=== PATIENT | female | born 1945 | race Caucasian/White ===

== ENCOUNTER 2018-04-03 14:59 | Emergency (ER) | payer MEDICARE ==
[2018-04-03 16:41] LABS: Hematocrit 22.2 % (36.0-45.0); MPV 8.1 fL (7.6-11.3); RBC Red Blood Cell Count 3.56 M/uL (3.86-4.86)
[2018-04-03 16:54] LABS: Ferritin 2.1 ng/mL (8-388); Folic Acid, (Folate) 7.8 ng/mL (3.1-17.5); Potassium 4.6 mmol/L (3.5-5.1)
--- NOTE | 2018-04-03 17:54 | ER ---
Nurse's Notes [facility] Name: Lynn Menezes Age: 73 yrs Sex: Female : 1945 Arrival Date: 04/03/2018 Time: 15:02 Bed 4 Private MD: Alan Whitley H Diagnosis: Iron deficiency anemia Presentation: 04/03 15:32 Presenting complaint: Patient states: Sent by Dr Whitley's office for Hgb 6.4 from blood ph work drawn on 03/27, pt denies abdominal pain, bloody stool or emesis, reports low back pain, fatigue and SOB upon exertion. Transition of care: patient was not received from another setting of care. Onset of symptoms was April 03, 2018. Risk Assessment: Do you want to hurt yourself or someone else? Patient reports no desire to harm self or others. Initial Sepsis Screen: Does the patient meet any 2 criteria? No. Patient's initial sepsis screen is negative. Does the patient have a suspected source of infection? No. Patient's initial sepsis screen is negative. Care prior to arrival: None. 15:32 Method Of Arrival: Ambulatory ph 15:32 Acuity: EUNICE 3 ph Historical: - Allergies: 15:36 Codeine; ph 15:36 PENICILLINS; ph 15:36 Sulfa (Sulfonamide Antibiotics); ph 15:36 TETRACYCLINES; ph - Home Meds: 15:36 Plavix Oral [Active]; Metformin Oral [Active]; levothyroxine oral [Active]; aspirin 81 ph mg Oral chew 1 tab once daily [Active]; HTN med [Active]; - Immunization history:: Adult Immunizations unknown. - Social history:: Smoking status: Patient uses tobacco products, smokes one pack cigarettes per day. - Ebola Screening: : No symptoms or risks identified at this time. - Family history:: not pertinent. - Hospitalizations: : No recent hospitalization is reported. Screenin:28 Abuse screen: Denies threats or abuse. Denies injuries from another. Nutritional sv screening: No deficits noted. Tuberculosis screening: No symptoms or risk factors identified. Fall Risk None identified. Assessment: 15:40 General: Appears in no apparent distress. comfortable, well developed, Behavior is sv calm, cooperative, appropriate for age. Pain: Complains of pain in low back area. Neuro: Level of Consciousness is awake, alert, obeys commands, Oriented to person, place, time, situation, Moves all extremities. Full function Gait is steady, Speech is normal. Respiratory: Reports shortness of breath on exertion Airway is patent Respiratory effort is even, unlabored, Respiratory pattern is regular, symmetrical. Derm: Skin is pale. Musculoskeletal: Range of motion: intact in all extremities. 16:41 Reassessment: Patient appears in no apparent distress at this time. No changes from previously documented assessment. Patient and/or family updated on plan of care and expected duration. Pain level reassessed. Patient is alert, oriented x 3, equal unlabored respirations, skin warm/dry/pink. 16:43 Reassessment: Dr. De La Torre notified of critical lab value: Hgb 6.4. Vital Signs: 15:37 BP 162 / 44; Pulse 74; Resp 18; Temp 98.2; Pulse Ox 97% on R/A; Weight 78.93 kg; Height ph 5 ft. 2 in. (157.48 cm); 16:38 BP 111 / 72; Pulse 71; Resp 18; Pulse Ox 99% ; sv 17:17 BP 136 / 56; Pulse 69; Resp 18; Pulse Ox 100% ; sv 18:20 BP 135 / 89; Pulse 67; Resp 18; Pulse Ox 99% ; sv 15:37 Body Mass Index 31.82 (78.93 kg, 157.48 cm) ph ED Course: 15:02 Patient arrived in ED. mr 15:03 Alan Whitley, is Private Physician. mr 15:25 Lucy Peralta, LARRY is Primary Nurse. sv 15:28 Patient has correct armband on for positive identification. Bed in low position. Call sv light in reach. Door closed. Head of bed elevated. 15:34 Triage completed. ph 15:34 Ambrosio De La Torre MD is Attending Physician. rn 15:40 Arm band placed on. sv 15:45 Initial lab(s) drawn, by ED staff, sent to lab. T\T\S collected, blood band applied to sv patient. Inserted saline lock: 20 gauge in right antecubital area, using aseptic technique. ,using aseptic technique. done by Starla JUAREZ Blood collected. 16:25 EKG done, by space technologist. reviewed by Ambrosio De La Torre MD. sm3 16:48 Manual Differential Sent. sv 17:53 Alan Whitley DO is Referral Physician. rn 18:37 No provider procedures requiring assistance completed. IV discontinued, intact, ss bleeding controlled, No redness/swelling at site. Pressure dressing applied. Administered Medications: No medications were administered Outcome: 17:54 Discharge ordered by MD. rn 18:37 Discharged to home ambulatory. ss 18:37 Condition: good 18:37 Discharge instructions given to patient, family, Instructed on discharge instructions, follow up and referral plans. medication usage, Demonstrated understanding of instructions, follow-up care, medications, Prescriptions given X 1. 18:38 Patient left the ED. Signatures: Lucy Peralta RN RN Fide Neri, MD MD larry Valente Shelby, RN RN Lynn Richard RN RN Abebe, Ayesha 3 Corrections: (The following items were deleted from the chart) 16:39 15:45 Initial lab(s) drawn, by ED staff, sent to lab. [facility]
--- NOTE | 2018-04-03 17:55 | EDPHYS ---
Physician Documentation [facility] Name: Lynn Menezes Age: 73 yrs Sex: Female : 1945 Arrival Date: 04/03/2018 Time: 15:02 Bed 4 Private MD: Alan Whitley H ED Physician Ambrosio De La Torre HPI: 04/03 17:45 This 73 yrs old Female presents to ER via Ambulatory with complaints of rn Abnormal Lab Results. 17:[address] Whitley called her for abnormal hemoglobin that was drawn 2 weeks ago. rn Reports chronic anemia, iron deficient, stopped taking her iron supplements. Reports gets a little winded upon high exertion but no chest pain/sob at rest/syncope, focal weakness. No blood in stool, denies bleeding from known source. . Severity of symptoms: At their worst the symptoms were mild in the emergency department the symptoms are unchanged. The patient has experienced similar episodes in the past. The patient has been recently seen by a physician:. Historical: - Allergies: 15:36 Codeine; ph 15:36 PENICILLINS; ph 15:36 Sulfa (Sulfonamide Antibiotics); ph 15:36 TETRACYCLINES; ph - Home Meds: 15:36 Plavix Oral [Active]; Metformin Oral [Active]; levothyroxine oral [Active]; aspirin 81 ph mg Oral chew 1 tab once daily [Active]; HTN med [Active]; - Immunization history:: Adult Immunizations unknown. - Social history:: Smoking status: Patient uses tobacco products, smokes one pack cigarettes per day. - Ebola Screening: : No symptoms or risks identified at this time. - Family history:: not pertinent. - Hospitalizations: : No recent hospitalization is reported. ROS: 17:45 Constitutional: Negative for fever, chills, and weight loss, + fatigue Eyes: Negative rn for injury, pain, redness, and discharge, Neck: Negative for injury, pain, and swelling, Cardiovascular: Negative for chest pain, palpitations, and edema, Respiratory: Negative for cough, wheezing, and pleuritic chest pain, Abdomen/GI: Negative for abdominal pain, nausea, vomiting, diarrhea, and constipation, Back: Negative for injury and pain, MS/Extremity: Negative for injury and deformity, Skin: Negative for injury, rash, and discoloration, Neuro: Negative for headache, numbness, tingling, and seizure. Exam: 17:45 Constitutional: This is a well developed, well nourished patient who is awake, alert, rn and in no acute distress. Head/Face: Normocephalic, atraumatic. Eyes: Pupils equal round and reactive to light, extra-ocular motions intact. Lids and lashes normal. Slightly pale conjunctivae ENT: Mucous membranes moist. Respiratory: No increased work of breathing, no retractions or nasal flaring. Skin: Warm, dry with normal turgor. Normal color with no rashes, no lesions, and no evidence of cellulitis. MS/ Extremity: Pulses equal, no cyanosis. Neurovascular intact. Full, normal range of motion. Equal circumference. Neuro: Awake and alert, GCS 15, oriented to person, place, time, and situation. Cranial nerves II-XII grossly intact. Motor strength 5/5 in all extremities. Sensory grossly intact. Cerebellar exam normal. Normal gait. Vital Signs: 15:37 BP 162 / 44; Pulse 74; Resp 18; Temp 98.2; Pulse Ox 97% on R/A; Weight 78.93 kg; Height ph 5 ft. 2 in. (157.48 cm); 16:38 BP 111 / 72; Pulse 71; Resp 18; Pulse Ox 99% ; sv 17:17 BP 136 / 56; Pulse 69; Resp 18; Pulse Ox 100% ; sv 18:20 BP 135 / 89; Pulse 67; Resp 18; Pulse Ox 99% ; sv 15:37 Body Mass Index 31.82 (78.93 kg, 157.48 cm) ph MDM: 15:34 Patient medically screened. rn 17:50 Differential Diagnosis anemia, iron deficiency. Data reviewed: vital signs, nurses rn notes, lab test result(s), and as a result, I will discharge patient. Counseling: I had a detailed discussion with the patient and/or guardian regarding: the historical points, exam findings, and any diagnostic results supporting the discharge/admit diagnosis, lab results, the need for outpatient follow up, to return to the emergency department if symptoms worsen or persist or if there are any questions or concerns that arise at home. Special discussion: I discussed with the patient/guardian in detail that at this point there is no indication for admission to the hospital. It is understood, however, that if the symptoms persist or worsen the patient needs to return immediately for re-evaluation. Based on the history and exam findings, there is no indication for further emergent testing or inpatient evaluation. I discussed with the patient/guardian the need to see the door paneler/oncologist for further evaluation of the symptoms. I discussed with the patient/guardian the need to see the primary care provider for further evaluation of the symptoms. ED course: Had long discussion with patient, seems more consistent with iron deficiency anemia as no active bleeding from known source, low iron and saturation, has been gradual onset. Given grossly asymptomatic, offered transfusion of 1 unit of blood vs oral iron and pcp f/u, patient perez snot want transfusion at this time, wants to get back on her oral iron supplements and f/u with Dr. Whitley for repeat hemoglobin in 2 weeks. Return precautions given and understood. . 04/03 15:43 Order name: CBC with Diff rn 04/03 15:43 Order name: Basic Metabolic Panel; Complete Time: 17: 04/03 15:43 Order name: Type And Screen; Complete Time: 17: rn 04/03 15:43 Order name: Retic Count rn 04/03 15:43 Order name: TRANSFERRIN SAT/IRON BINDING; Complete Time: 17:31 04/03 15:43 Order name: Iron Level; Complete Time: 17:31 rn 04/03 15:43 Order name: IV Start; Complete Time: 16:35 rn 04/03 15:43 Order name: EKG; Complete Time: 15:44 rn 04/03 15:43 Order name: EKG - Nurse/Tech; Complete Time: 16:35 04/03 15:43 Order name: Folic Acid,Serum (folate); Complete Time: 17:31 rn 04/03 15:43 Order name: B12; Complete Time: 17: 04/03 16:46 Order name: Manual Differential EDMS Administered Medications: No medications were administered Disposition: 04/03/18 17:54 Discharged to Home. Impression: Iron deficiency anemia. - Condition is Stable. - Discharge Instructions: Iron Deficiency Anemia, Adult. - Prescriptions for Ferrous Sulfate 325 mg (65 mg Iron) Oral Tablet - take 1 tablet by ORAL route every 8 hours; 90 tablet. - Medication Reconciliation Form, Thank You Letter, Antibiotic Education, Prescription Opioid Use form. - Follow up: Alan Whitley DO; When: 2 Weeks; Reason: Recheck today's complaints, Continuance of care, Re-evaluation by your physician. - Problem is an ongoing problem. - Symptoms are unchanged. Signatures: Dispatcher [employer] [facility] Ambrosio De La Torre MD MD rn Smirch, Shelby, RN RN ss Hall, Patricia, RN RN ph Corrections: (The following items were deleted from the chart) 15:45 15:44 FERRITIN+C.LAB.BRZ ordered. [facility] 18:38 17:54 04/03/2018 17:54 Discharged to Home. Impression: Iron deficiency anemia. ss Condition is Stable. Forms are Medication Reconciliation Form, Thank You Letter, Antibiotic Education, Prescription Opioid Use. Follow up: Alan Whitley; When: 2 Weeks; Reason: Recheck today's complaints, Continuance of care, Re-evaluation by your physician. Problem is an ongoing problem. Symptoms are unchanged. rn
[2018-04-03 17:58] LABS: Anisocytosis 1+; Blood Morphology Comment NOTED (NOT SEEN); Hypochromasia 1+; Platelet Estimate ADEQ
[2018-04-03 17:59] LABS: Poikilocytosis SLIGHT; Polychromasia SLIGHT
[2018-04-03 18:49] VITALS: TEMP 98.2
[2018-04-03 18:51] VITALS: BP 136/56; O2SAT 100
--- NOTE | 2018-04-04 06:58 | EKG ---
Test Date: 2018-04-03 Test Time: 16:03:23 Paragliding Instructor: ARNULFO MEASUREMENT RESULTS: Intervals: Rate: 64 KS: 206 QRSD: 100 QT: 404 QTc: 416 [place]: P: 42 KS: 206 QRS: 25 T: 73 INTERPRETIVE STATEMENTS: Normal sinus rhythm Nonspecific ST abnormality Abnormal ECG Compared to ECG 01/09/2017 12:41:12 ST (T wave) deviation now present First degree AV block no longer present Myocardial infarct finding no longer present Electronically Signed On 04-04-18 06:56:13 [employer]ANSFORMER [employer]SEM[employer]PERVISOR by Eldon Jones
== END 2018-04-03 18:38 | disposition home or self-care (01) ==
LOC: ER 14:59
DX: D50.9 Iron deficiency anemia, unspecified (principal); I10 Essential (primary) hypertension; F17.210 Nicotine dependence, cigarettes, uncomplicated; Z79.01 Long term (current) use of anticoagulants; Z79.82 Long term (current) use of aspirin; Z88.0 Allergy status to penicillin; Z88.2 Allergy status to sulfonamides; Z88.3 Allergy status to other anti-infective agents; Z88.5 Allergy status to narcotic agent
CPT/HCPCS: 36415; 80048; 82607; 82728; 82746; 83540; 84466; 85025; 85044; 86850; 86900; 86901; 93005; 99284

== ENCOUNTER 2022-04-01 12:23 | Inpatient (IN) | payer MEDICARE, OTHER ==
[2022-04-01 13:08] LABS: Absolute Lymphocytes (CBC) 0.4 K/uL (0.7-4.9); Hematocrit 26.3 % (36.0-45.0); Lymphocytes % 2.9 % (15.3-44.8); MCV 70.2 fL (80-100); MPV 8.1 fL (7.6-11.3); RBC Red Blood Cell Count 3.75 M/uL (3.86-4.86)
[2022-04-01 13:12] LABS: Protime INR 1.11
[2022-04-01 13:19] LABS: Urine Blood 2+ (Negative); Urine Glucose Trace (Negative); Urine Protein 3+ (Negative); Urine Specific Gravity >=1.030 (1.005-1.030); Urine pH 5.5 (5.0-7.0)
[2022-04-01 13:27] LABS: Blood Gas Oxyhemoglobin 91.8 % (94-97); Blood O2 Saturation 94.8 % (92-98.5)
[2022-04-01 13:28] LABS: Bilirubin Total 0.5 mg/dL (0.2-1.0); Potassium 4.3 mmol/L (3.5-5.1); Protein, Total 8.4 g/dL (6.4-8.2)
[2022-04-01] MEDS ORDERED: METHYLPREDNISOLONE 125 MG INJ ONE (13:33)
[2022-04-01] MEDS ORDERED: Meropenem 1000 MG/VIAL IV ONE (13:33)
[2022-04-01] MEDS ORDERED: LEVALBUTEROL 1.25 MG/3 ML NEB ONE (13:33)
[2022-04-01] MEDS ORDERED: NA CHLORIDE 0.9% 1,000 ML ONE (13:34)
[2022-04-01] MEDS ORDERED: PANTOPRAZOLE 40 MG INJ ONE (13:34)
[2022-04-01] MEDS ORDERED: NA CHLORIDE 0.9% 500 ML ONE (13:34)
[2022-04-01] MEDS ORDERED: IPRATROPIUM BROM 0.5MG/2.5ML ONE (13:34)
[2022-04-01] MEDS ORDERED: NA CHLORIDE 0.9% 100 ML ONE (13:34)
[2022-04-01 13:35] LABS: Urine Bacteria >50 /HPF (<20); Urine Mucus Slight /HPF (None Seen); Urine RBC <5 /HPF (None Seen); Urine WBC Clump Occasional /HPF (None Seen)
--- NOTE | 2022-04-01 13:48 | RAD REPORT ---
EXAM DESCRIPTION: [place] Single View04/01/2022 1:38 pm CLINICAL HISTORY: Shortness breath COMPARISON: 2017 FINDINGS: [id number] bilateral pulmonary opacities Heart is mildly enlarged IMPRESSION: Mild to moderate bilateral pulmonary opacities may represent pneumonia or pulmonary ailyn a
[2022-04-01 13:49] LABS: Blood Morphology Comment NOTED (NOT SEEN); Hypochromasia 1+; Platelet Estimate ADEQ; White Blood Cell Scan OK (OK)
[2022-04-01 14:08] LABS: SARS-COV-2 RT PCR POSITIVE (NEGATIVE)
--- NOTE | 2022-04-01 14:26 | EDPHYS ---
Physician Documentation [facility] Name: Lynn Menezes Age: 77 yrs Sex: Female : 1945 Arrival Date: 04/01/2022 Time: 12:25 Bed 4 Private MD: DAPHNIE Physician Gelacio Felix HPI: 04/01 13:00 This 77 yrs old Female presents to ER via Wheelchair with complaints of camden Breathing Difficulty, General Weakness. 13:00 The patient has shortness of breath at rest, with light activity. Onset: The camden symptoms/episode began/occurred 3 day(s) ago. Historical: - Allergies: 12:45 Codeine; iw 12:45 PENICILLINS; iw 12:45 Sulfa (Sulfonamide Antibiotics); iw 12:45 TETRACYCLINES; iw - Home Meds: 13:01 aspirin 81 mg Oral chew 1 tab once daily [Active]; ibuprofen 600 mg Oral tab 1 tab 3 iw times per day [Active]; oxybutynin chloride 5 mg Oral tab 1 tab 2 times per day [Active]; ferrous sulfate 325 mg (65 mg iron) Oral cpER daily [Active]; losartan 100 mg oral tab 1 tab once daily [Active]; Vitamin D Oral 2000 unit daily [Active]; metformin 500 mg oral tab 2 times per day [Active]; fenofibrate 160 mg oral tab 1 tab once daily [Active]; Advair Diskus 100-50 mcg/dose Inhl dsdv 1 puff 2 times per day [Active]; - PMHx: 13:01 COPD; Emphysema; Hypothyroidism; Anemia; Hypertensive disorder; iw - Social history:: Smoking status: Patient reports the use of cigarette tobacco products. - Family history:: not pertinent. ROS: 13:01 Constitutional: Negative for fever, chills, and weight loss, Eyes: Negative for injury, camden pain, redness, and discharge, ENT: Negative for injury, pain, and discharge, Neck: Negative for injury, pain, and swelling, Abdomen/GI: Negative for abdominal pain, nausea, vomiting, diarrhea, and constipation, Back: Negative for injury and pain, : Negative for injury, bleeding, discharge, and swelling, MS/Extremity: Negative for injury and deformity, Psych: Negative for depression, anxiety, suicide ideation, homicidal ideation, and hallucinations, Allergy/Immunology: Negative for hives, rash, and allergies, Endocrine: Negative for neck swelling, polydipsia, polyuria, polyphagia, and marked weight changes. 13:01 Cardiovascular: Positive for orthopnea, palpitations. 13:01 Respiratory: Positive for cough, shortness of breath, at rest. wheezing, inspiratory, expiratory. 13:01 Skin: Positive for pallor. Exam: 13:01 Constitutional: This is a well developed, well nourished patient who is awake, alert, camden and in no acute distress. Head/Face: Normocephalic, atraumatic. Eyes: Pupils equal round and reactive to light, extra-ocular motions intact. Lids and lashes normal. Conjunctiva and sclera are non-icteric and not injected. Cornea within normal limits. Periorbital areas with no swelling, redness, or edema. ENT: Nares patent. No nasal discharge, no septal abnormalities noted. Tympanic membranes are normal and external auditory canals are clear. Oropharynx with no redness, swelling, or masses, exudates, or evidence of obstruction, uvula midline. Mucous membranes moist. Neck: Trachea midline, no thyromegaly or masses palpated, and no cervical lymphadenopathy. Supple, full range of motion without nuchal rigidity, or vertebral point tenderness. No Meningismus. Chest/axilla: Normal chest wall appearance and motion. Nontender with no deformity. No lesions are appreciated. Abdomen/GI: Soft, non-tender, with normal bowel sounds. No distension or tympany. No guarding or rebound. No evidence of tenderness throughout. Back: No spinal tenderness. No costovertebral tenderness. Full range of motion. Female : Normal external genitalia. MS/ Extremity: Pulses equal, no cyanosis. Neurovascular intact. Full, normal range of motion. Psych: Awake, alert, with orientation to person, place and time. Behavior, mood, and affect are within normal limits. 13:01 Cardiovascular: Rate: tachycardic, actual rate is 120 bpm, Rhythm: regular, Pulses: Pulses are 4+ in bilateral radial, brachial, femoral, popliteal, posterior tibial and and dorsalis pedis arteries.. Heart sounds: normal, Edema: is not appreciated, JVD: is not appreciated. 13:01 ECG was reviewed by the Attending Physician. 14:19 Abdomen/GI: Inspection: distension, that is mild, Bowel sounds: normal, active, all camden quadrants, Palpation: soft, nontender, Rectal exam: rectal tone normal, Stool: brown, hemorrhoid(s), are not appreciated, mass, is not appreciated, swelling, is not appreciated, tenderness, is not appreciated, fecal impaction, is not appreciated, Liver: no appreciated palpable abnormalities, Hernia: not appreciated. Vital Signs: 12:30 BP 142 / 57; Pulse 120; Resp 32; Temp 98.4; Pulse Ox 72% on R/A; Weight 83.91 kg; hb Height 5 ft. 2 in. (157.48 cm); Pain 0/10; 13:04 BP 152 / 57; Pulse 112; Resp 30; Temp 98.4(O); Pulse Ox 97% on 4 lpm NC; iw 14:00 BP 115 / 57; Pulse 103; Resp 27; Pulse Ox 100% on BiPAP; kr3 15:00 BP 137 / 51; Pulse 106; Resp 26; Pulse Ox 98% on BiPAP; kr3 16:00 BP 122 / 53; Pulse 97; Resp 26; Pulse Ox 100% on BiPAP; kr3 17:00 BP 126 / 40; Pulse 96; Resp 24; Pulse Ox 100% on BiPAP; kr3 12:30 Body Mass Index 33.84 (83.91 kg, 157.48 cm) hb NIH Stroke Scale Scores: 14:19 NIHSS Score: 0 camden Marky Coma Score: 14:19 Eye Response: spontaneous(4). Verbal Response: oriented(5). Motor Response: obeys camden commands(6). Total: 15. MDM: 12:41 Patient medically screened. camden 13:05 Differential diagnosis: Anemia asthma, Bronchitis CHF exacerbation, Chronic Obstructive camden Pulmonary Disease acute asthma, exercise-induced asthma, reactive airway, URI, Myocardial Infarction pneumonia, Pneumothorax pulmonary edema, Pulmonary Embolism reactive airway disease, Sepsis Unstable Angina. Antibiotic administration: Maxipime and Levaquin given. Differential Diagnosis altered mental status, sepsis, flu. Immunization status: Pneumococcal vaccine: within last 5 years. Influenza vaccine: within last 5 years. Data reviewed: vital signs, nurses notes, lab test result(s), EKG, radiologic studies. Consideration of Admission/Observation Patient was admitted/placed on observation. I considered the following discharge prescriptions or medication management in the emergency department Medications were administered in the Emergency Department. See MAR. Test considered but Not performed: MRI: MRI CHEST. Historians other than the Patient: Daughter/Son: SON , WELL INFORMED. Care significantly affected by the following chronic conditions: Hypertension, Chronic Obstructive Pulmonary Disease, ANEMIA, HYPOTHYROID. 04/01 12:45 Order name: Blood Culture Adult (2) 04/01 12:45 Order name: CBC with Diff; Complete Time: 13:53 04/01 12:45 Order name: CMP; Complete Time: 13:53 04/01 12:45 Order name: Lactate w/ 2H reflex if indic.; Complete Time: 13:53 04/01 12:45 Order name: Protime (+inr); Complete Time: 13:53 04/01 12:45 Order name: Ptt, Activated; Complete Time: 13:53 04/01 12:45 Order name: Urine Microscopic Only; Complete Time: 13:53 04/01 12:47 Order name: COVID-19/FLU A+B; Complete Time: 14:18 kr3 04/01 12:59 Order name: Basic Metabolic Panel [facility] 04/01 12:59 Order name: LFT's [facility] 04/01 12:59 Order name: Magnesium [facility] 04/01 12:59 Order name: NT PRO-BNP [facility] 04/01 12:59 Order name: Troponin HS [facility] 04/01 12:59 Order name: Type And Screen [facility] 04/01 12:59 Order name: ABG; Complete Time: 13:53 [facility] 04/01 13:19 Order name: Urine Dipstick-Ancillary; Complete Time: 13:53 [facility] 04/01 13:20 Order name: CBC Smear Scan; Complete Time: 13:53 [facility] 04/01 13:36 Order name: Bb Add On eb 04/01 14:26 Order name: Packed RBC Leukored [facility] 04/01 16:01 Order name: T4 Free [facility] 04/01 16:01 Order name: Thyroid Stimulating Hormone [facility] 04/01 16:01 Order name: Urinalysis [facility] 04/01 16:01 Order name: Basic Metabolic Panel [facility] 04/01 16:01 Order name: Basic Metabolic Panel [facility] 04/01 16:01 Order name: Basic Metabolic Panel [facility] 04/01 16:01 Order name: Basic Metabolic Panel [facility] 04/01 16:01 Order name: CBC with Automated Diff [facility] 04/01 16:01 Order name: CBC with Automated Diff EDMS 04/01 16:01 Order name: CBC with Automated Diff EDMS 04/01 12:45 Order name: Chest Single View XRAY; Complete Time: 13:53 iw 04/01 12:45 Order name: EKG; Complete Time: 12:46 iw 04/01 12:45 Order name: Accucheck; Complete Time: 18:30 iw 04/01 12:45 Order name: Cardiac monitoring; Complete Time: 12:50 iw 04/01 12:45 Order name: EKG - Nurse/Tech; Complete Time: 12:50 iw 04/01 12:45 Order name: IV Saline Lock - Large Bore; Complete Time: 12:50 iw 04/01 12:45 Order name: Labs collected and sent; Complete Time: 12:50 iw 04/01 12:45 Order name: O2 Per Protocol; Complete Time: 12:50 iw 04/01 12:45 Order name: O2 Sat Monitoring; Complete Time: 12:50 iw 04/01 12:45 Order name: Vital Signs; Complete Time: 14:51 iw 04/01 12:59 Order name: IV Saline Lock; Complete Time: 13:20 cam[place] 04/01 12:59 Order name: IV Saline Lock - Large Bore; Complete Time: 13:20 [place] 04/01 12:59 Order name: BIPAP [facility] 04/01 12:59 Order name: Boo; Complete Time: 13:21 cam[place] 04/01 13:55 Order name: Transfuse; Complete Time: 18:30 [facility] 04/01 16:01 Order name: 60g Consistent Carbohydrate (ADA 1800/2000) EDMS 04/01 16:01 Order name: CBC with Automated Diff EDMS 04/01 16:01 Order name: Magnesium EDMS 04/01 16:01 Order name: Magnesium EDMS 04/01 16:01 Order name: Phosphorus EDMS 04/01 16:01 Order name: Phosphorus EDMS 04/01 16:46 Order name: Lactate Sepsis 2 HR Follow-up EDMS 04/01 18:10 Order name: CBC with Automated Diff EDMS 04/01 18:11 Order name: CBC Smear Scan EDMS EC:01 Rate is 112 beats/min. Rhythm is regular. QRS [place] is Normal. IN interval is normal. camden QRS interval is normal. QT interval is normal. No Q waves. T waves are Normal. No ST changes noted. Clinical impression: Sinus tachycardia. Interpreted by me. Reviewed by me. Administered Medications: 13:30 Drug: AtroVENT (ipratropium) Aerosol 0.5 mg Route: Inhalation; kr3 13:35 Drug: ProTONIX (pantoprazole) 80 mg Route: IVP; Site: left wrist; kr3 18:29 Follow up: Response: No adverse reaction kr3 13:40 Drug: NS 0.9% 500 ml Route: IV; Rate: bolus; Site: left wrist; kr3 14:15 Follow up: Response: No adverse reaction; IV Status: Completed infusion; IV Intake: kr3 500ml 13:50 Drug: SOLU-Medrol (methylPrednisoLONE) 125 mg Route: IVP; Site: right antecubital; kr3 18:28 Follow up: Response: No adverse reaction kr3 14:10 Drug: Meropenem 1 grams Route: IV; Rate: per protocol; Site: left wrist; kr3 14:45 Follow up: Response: No adverse reaction; IV Status: Completed infusion kr3 14:10 Drug: Xopenex (levalbuterol) 3.75 mg Route: Inhalation; kr3 14:51 Drug: NS 0.9% 1000 ml Route: IV; Rate: 125 ml/hr; Site: left wrist; iw 18:27 Follow up: Response: No adverse reaction; IV Status: Infusion continued upon admission kr3 Disposition Summary: 04/01/22 14:25 Hospitalization Ordered Hospitalization Status: Inpatient Admission cam[place] Provider: Joseluis Taylor cha [facility] [place] Condition: Fair camden Problem: new camden Symptoms: have improved camden Bed/Room Type: Standard camden Room Assignment: 417(04/01/22 16:43) dw Diagnosis - Anemia, unspecified camden - Weakness camden - COPD/ Chronic obstructive pulmonary disease with (acute) exacerbation camden - Hypoxemia camden - Elevated white blood cell count, unspecified camden - Acute and chronic respiratory failure with hypercapnia camden - Severe sepsis without septic shock camden - Coronavirus infection, unspecified camden - Other coronavirus as the cause of diseases classified elsewhere camden - SARS-associated coronavirus as the cause of diseases classified elsewhere camden Forms: - Medication Reconciliation Form camden - SBAR form camden NIH Stroke Scale - NIH Stroke Score Date: 04/01/2022 Time: 14:19 Total Score = 0 1a. Level of Consciousness (LOC) - 0(Alert) 1b. Level of Consciousness (LOC) (Month \T\ Age) - 0(Both) 1c. LOC Commands (Open \T\ Closes Eyes/Wearing Apparel Assembler) - 0(Both) 2. Best Gaze (Lateral Gaze Paresis) - 0(Normal) 3. Visual Field Loss - 0(No visual loss) 4. Facial Palsy - 0(Normal) 5a. Left Arm: Motor (10-second hold) - 0(No drift) 5b. Right Arm: Motor (10-second hold) - 0(No drift) 6a. Left Leg: Motor (5-second hold - always test supine) - 0(No drift) 6b. Right Leg: Motor (5-second hold - always test supine) - 0(No drift) 7. Limb Ataxia (finger/nose \T\ heel/lockett - test with eyes open) - 0(Absent) 8. Sensory Loss (pinprick arms/legs/face) - 0(Normal) 9. Best Language: Aphasia (description/naming/reading) - 0(No aphasia) 10. Dysarthria (speech clarity - read or repeat words) - 0(Normal) 11. Extinction and Inattention (visual/tactile/auditory/spatial/personal) - 0(No abnormality) Initials: camden Signatures: Dispatcher [employer] Dominique Thakur RN RN dw Anderson, Corey, MD MD cha Williams, Irene, RN RN iw Almita Bush RN RN kr3 Corrections: (The following items were deleted from the chart) 16:43 14:25 camden monte
--- NOTE | 2022-04-01 14:26 | ER ---
Nurse's Notes [facility] Name: Lynn Menezes Age: 77 yrs Sex: Female : 1945 Arrival Date: 04/01/2022 Time: 12:25 Bed 4 Private MD: Diagnosis: Anemia, unspecified;Weakness;COPD/ Chronic obstructive pulmonary disease with (acute) exacerbation;Hypoxemia;Elevated white blood cell count, unspecified;Acute and chronic respiratory failure with hypercapnia;Severe sepsis without septic shock;Coronavirus infection, unspecified;Other coronavirus as the cause of diseases classified elsewhere;SARS-associated coronavirus as the cause of diseases classified elsewhere Presentation: 04/01 12:30 Chief complaint: SOB, cough, congestion, and generalized weakness x 2-3 days. hb Coronavirus screen: Client presents with at least one sign or symptom that may indicate coronavirus-19. Standard/surgical mask placed on the client. Provider contacted for isolation considerations. Ebola Screen: No symptoms or risks identified at this time. Onset of symptoms was March 29, 2022. 12:30 Method Of Arrival: Wheelchair hb 12:30 Acuity: EUNICE 2 hb 13:24 Initial Sepsis Screen: Does the patient meet any 2 criteria? No. Patient's initial kr3 sepsis screen is negative. Does the patient have a suspected source of infection? No. Patient's initial sepsis screen is negative. Risk Assessment: Do you want to hurt yourself or someone else? Patient reports no desire to harm self or others. Historical: - Allergies: 12:45 Codeine; iw 12:45 PENICILLINS; iw 12:45 Sulfa (Sulfonamide Antibiotics); iw 12:45 TETRACYCLINES; iw - Home Meds: 13:01 aspirin 81 mg Oral chew 1 tab once daily [Active]; ibuprofen 600 mg Oral tab 1 tab 3 iw times per day [Active]; oxybutynin chloride 5 mg Oral tab 1 tab 2 times per day [Active]; ferrous sulfate 325 mg (65 mg iron) Oral cpER daily [Active]; losartan 100 mg oral tab 1 tab once daily [Active]; Vitamin D Oral 2000 unit daily [Active]; metformin 500 mg oral tab 2 times per day [Active]; fenofibrate 160 mg oral tab 1 tab once daily [Active]; Advair Diskus 100-50 mcg/dose Inhl dsdv 1 puff 2 times per day [Active]; - PMHx: 13:01 COPD; Emphysema; Hypothyroidism; Anemia; Hypertensive disorder; iw - Social history:: Smoking status: Patient reports the use of cigarette tobacco products. - Family history:: not pertinent. Screenin:24 [facility] ED Fall Risk Assessment (Adult) History of falling in the last 3 months, kr3 including since admission No falls in past 3 months (0 pts) Confusion or Disorientation No (0 pts) Intoxicated or Sedated No (0 pts) Impaired Gait Yes (1 pt) Mobility Assist Device Used No (0 pt) Altered Elimination No (0 pt) Score/Fall Risk Level 0 - 2 = Low Risk Oriented to surroundings, Maintained a safe environment, Educated pt \T\ family on fall prevention, incl call for assistance when getting out of bed, Assessed \T\ reinforced patient's understanding of fall precautions, Hourly rounding (assess needs \T\ fall precautionary measures) done. Abuse screen: Denies threats or abuse. Nutritional screening: No deficits noted. Tuberculosis screening: No symptoms or risk factors identified. Assessment: 13:21 General: Appears uncomfortable, ill, Behavior is calm, cooperative, appropriate for kr3 age, flat. Neuro: Level of Consciousness is awake, alert, obeys commands, Oriented to person, place, time, situation. Cardiovascular: Patient's skin is warm and dry. Respiratory: Airway is patent Respiratory effort is even, labored, Respiratory pattern is regular. GI: No signs and/or symptoms were reported involving the gastrointestinal system. : No signs and/or symptoms were reported regarding the genitourinary system. EENT: No signs and/or symptoms were reported regarding the EENT system. Derm: No signs and/or symptoms reported regarding the dermatologic system. Musculoskeletal: Reports weakness in general weakness. 14:20 Reassessment: No changes from previously documented assessment. Patient and/or family kr3 updated on plan of care and expected duration. Pain level reassessed. 15:20 Reassessment: No changes from previously documented assessment. Patient and/or family kr3 updated on plan of care and expected duration. Pain level reassessed. 16:20 Reassessment: No changes from previously documented assessment. Patient and/or family kr3 updated on plan of care and expected duration. Pain level reassessed. Vital Signs: 12:30 BP 142 / 57; Pulse 120; Resp 32; Temp 98.4; Pulse Ox 72% on R/A; Weight 83.91 kg; hb Height 5 ft. 2 in. (157.48 cm); Pain 0/10; 13:04 BP 152 / 57; Pulse 112; Resp 30; Temp 98.4(O); Pulse Ox 97% on 4 lpm NC; iw 14:00 BP 115 / 57; Pulse 103; Resp 27; Pulse Ox 100% on BiPAP; kr3 15:00 BP 137 / 51; Pulse 106; Resp 26; Pulse Ox 98% on BiPAP; kr3 16:00 BP 122 / 53; Pulse 97; Resp 26; Pulse Ox 100% on BiPAP; kr3 17:00 BP 126 / 40; Pulse 96; Resp 24; Pulse Ox 100% on BiPAP; kr3 12:30 Body Mass Index 33.84 (83.91 kg, 157.48 cm) hb [place] Coma Score: 14:19 Eye Response: spontaneous(4). Verbal Response: oriented(5). Motor Response: obeys camden commands(6). Total: 15. NIH Stroke Scale Scores: 14:19 NIHSS Score: 0 camden ED Course: 12:25 Patient arrived in ED. rg4 12:31 Triage completed. hb 12:41 Gelacio Felix MD is Attending Physician. camden 12:45 Arm band placed on. iw 12:48 Initial lab(s) drawn, by me, Second set of blood cultures drawn by me. Inserted saline iw lock: 20 gauge in right antecubital area, using aseptic technique. Blood collected. 12:50 Almita Bush RN is Primary Nurse. kr3 13:05 Bed in low position. Call light in reach. Side rails up X 1. kr3 13:23 Inserted saline lock: 20 gauge in left antecubital area, using aseptic technique. Blood kr3 collected. 13:23 Speci-cath kit inserted, using sterile technique, 14 Fr., specimen obtained. kr3 13:23 Purewick placed to suction. kr3 13:32 Notified ED physician of a critical lab result(s). Lactate 2.2. jl7 13:40 Chest Single View XRAY In Process Unspecified. EDMS 14:09 Bb Add On Sent. kr3 14:23 Joseluis Taylor MD is Hospitalizing Provider. camden 14:51 BIPAP Sent. iw 18:26 No provider procedures requiring assistance completed. Patient admitted, IV remains in kr3 place. intact, No redness/swelling at site. Administered Medications: 13:30 Drug: AtroVENT (ipratropium) Aerosol 0.5 mg Route: Inhalation; kr3 13:35 Drug: ProTONIX (pantoprazole) 80 mg Route: IVP; Site: left wrist; kr3 18:29 Follow up: Response: No adverse reaction kr3 13:40 Drug: NS 0.9% 500 ml Route: IV; Rate: bolus; Site: left wrist; kr3 14:15 Follow up: Response: No adverse reaction; IV Status: Completed infusion; IV Intake: kr3 500ml 13:50 Drug: SOLU-Medrol (methylPrednisoLONE) 125 mg Route: IVP; Site: right antecubital; kr3 18:28 Follow up: Response: No adverse reaction kr3 14:10 Drug: Meropenem 1 grams Route: IV; Rate: per protocol; Site: left wrist; kr3 14:45 Follow up: Response: No adverse reaction; IV Status: Completed infusion kr3 14:10 Drug: Xopenex (levalbuterol) 3.75 mg Route: Inhalation; kr3 14:51 Drug: NS 0.9% 1000 ml Route: IV; Rate: 125 ml/hr; Site: left wrist; iw 18:27 Follow up: Response: No adverse reaction; IV Status: Infusion continued upon admission kr3 Medication: 13:32 VIS not applicable for this client. jl7 Intake: 14:15 IV: 500ml; Total: 500ml. kr3 Outcome: 14:25 Decision to Hospitalize by Provider. camden 18:26 Admitted to Med/surg accompanied by nurse, via stretcher, room 417, with oxygen, with kr3 chart. 18:26 Condition: stable 18:26 Discharge instructions given to patient, Instructed on the need for admit, Demonstrated understanding of instructions. 18:30 Patient left the ED. kr3 NIH Stroke Scale - NIH Stroke Score Date: 04/01/2022 Time: 14:19 Total Score = 0 1a. Level of Consciousness (LOC) - 0(Alert) 1b. Level of Consciousness (LOC) (Month \T\ Age) - 0(Both) 1c. LOC Commands (Open \T\ Closes Eyes/Core Dropper) - 0(Both) 2. Best Gaze (Lateral Gaze Paresis) - 0(Normal) 3. Visual Field Loss - 0(No visual loss) 4. Facial Palsy - 0(Normal) 5a. Left Arm: Motor (10-second hold) - 0(No drift) 5b. Right Arm: Motor (10-second hold) - 0(No drift) 6a. Left Leg: Motor (5-second hold - always test supine) - 0(No drift) 6b. Right Leg: Motor (5-second hold - always test supine) - 0(No drift) 7. Limb Ataxia (finger/nose \T\ heel/lockett - test with eyes open) - 0(Absent) 8. Sensory Loss (pinprick arms/legs/face) - 0(Normal) 9. Best Language: Aphasia (description/naming/reading) - 0(No aphasia) 10. Dysarthria (speech clarity - read or repeat words) - 0(Normal) 11. Extinction and Inattention (visual/tactile/auditory/spatial/personal) - 0(No abnormality) Initials: camden Signatures: Dispatcher [employer] Gelacio Agudelo MD MD cha Williams, Irene, RN Dolores Thurman RN Sadie Ashford4 Sal Newberry RN RN jl7 Almita Bush RN RN kr3
[2022-04-01 14:43] LABS: Albumin 2.5 g/dL (3.4-5.0); Bilirubin Direct 0.3 mg/dL (0-0.2); Bilirubin Total 0.4 mg/dL (0.2-1.0); Magnesium 2.4 mg/dL (1.6-2.4); Potassium 4.2 mmol/L (3.5-5.1); Protein, Total 7.3 g/dL (6.4-8.2); Troponin High Sensitivity 37.6 pg/mL (<58.9)
--- NOTE | 2022-04-01 14:52 | P.HP ---
Certification for Inpatient Patient admitted to: Inpatient With expected LOS: >2 Midnights Patient will require the following post-hospital care: None Practitioner: I am a practitioner with admitting privileges, knowledge of patient current condition, hospital course, and medical plan of care. Services: Services provided to patient in accordance with Admission requirements found in Title 42 Section 412.3 of the Code of Federal Regulations Patient History Date of Service: 04/01/22 Primary Care Provider: Angi Reason for admission: COPD exacerbation, UTI History of Present Illness: This is a 77-year-old female with prior medical history of emphysema, COPD, hypothyroidism, anemia, and hypertensive disorder. Patient presents to the emergency room with complaints of shortness of breath and generalized weakness. Patient was evaluated in the ER with son at the bedside. Patient was on the BiPAP at 12/6 and 40%. Patient is alert and oriented. Patient is able to nod appropriately to questions, most of history and review of system obtained from son. Per son, patient had an endoscopy procedure today. Patient states that he went to parts picker his mother for procedure today and as he walked and her mom was stopped over the chair. They reported associated symptoms of congestion, fatigue, confusion, shortness of breath on exertion and weakness. Per son, patient was cognitively coherent the night before. It was reported that symptoms started 2 days ago. Patient will be admitted under the care of Dr. Taylor. Pulmonology and infectious disease will be consulted for further recommendations. Allergies codeine Allergy (Verified 05/09/14 23:14) Itching No Known Drug Allergies Allergy (Unverified 05/19/14 20:01) Unknown Penicillins Allergy (Verified 05/09/14 23:14) Itching Sulfa (Sulfonamide Antibiotics) Allergy (Verified 05/09/14 23:14) Itching Tetracyclines Allergy (Verified 06/09/14 10:44) Itching Home Medications: Metformin HCl [Glucophage*] 500 mg PO BIDWM 05/09/14 Aspirin [Aspirin EC 81 MG] 81 mg PO DAILY 05/13/14 Fenofibrate [Tricor*] 160 mg PO DAILY 05/13/14 Levothyroxine Sodium 150 mcg PO DAILY 05/13/14 oxyBUTYnin chloride [Ditropan*] 5 mg PO DAILY 05/13/14 Clopidogrel Bisulfate [Plavix] 75 mg PO DAILY #30 tablet 05/14/14 Ciprofloxacin HCl [Cipro 500 MG Tablet] 500 mg PO BID 01/09/17 Losartan Potassium [Cozaar] 100 mg PO DAILY 01/09/17 NaCl 0.9% Irr Bottle [Ns Irrigation Bottle] 1,000 ml IR DAILY #1 btl 01/09/17 Tramadol HCl/Acetaminophen [Ultracet Tablet] 1 each PO Q4H #30 tablet 01/09/17 - Past Medical/Surgical History Diabetic: Yes -: COPD -: DM -: Hysterectomy - Social History Smoking Status: Current every day smoker Alcohol use: No CD- Drugs: No Caffeine use: Yes Place of Residence: Home Review of Systems 10-point ROS is otherwise unremarkable General: Weakness Respiratory: Cough, Shortness of Breath, SOB with Excertion Neurological: Weakness Physical Examination - Vital Signs Blood Pressure: 137/53 Pulse: 108 Respirations: 30 Pulse Ox (%): 99 - Physical Exam General: Alert, In no apparent distress HEENT: Atraumatic Neck: Supple Respiratory: Expiratory wheezes Cardiovascular: No edema, Normal pulses Capillary refill: <2 Seconds Gastrointestinal: Normal bowel sounds Musculoskeletal: No clubbing, No swelling Integumentary: No rashes Neurological: Other (BiPAP) Lymphatics: No axilla or inguinal lymphadenopathy - Studies Laboratory Data (last 24 hrs) 04/01/22 14:01: Sodium 130 L, Potassium 4.2, BUN 40 H, Creatinine 1.62 H, Glucose 231 H, Magnesium 2.4, Total Bilirubin 0.4, AST 40 H, ALT 26, Alkaline Phosphatase 55 04/01/22 12:48: PT 12.2, INR 1.11, APTT 29.8 04/01/22 12:48: Sodium 132 L, Potassium 4.3, BUN 39 H, Creatinine 1.79 H, Glucose 269 H, Total Bilirubin 0.5, AST 47 H, ALT 29, Alkaline Phosphatase 65 04/01/22 12:48: WBC 12.70 H, Hgb 7.8 L, Hct 26.3 L, Plt Count 266 Assessment and Plan - Plan Assessment COPD exacerbation UTI VICKY Diabetes type 2 [id number] Hypothyroidism Hypertension Chronic anemia Plan COPD exacerbation Continue nebulizer treatment with IV steroids Continue BiPAP support Pulmonology consulted recommendations appreciated Encourage incentive spirometry when off BiPAP UTI Continue antibiotics Infectious disease consulted VICKY Continue IV fluids Avoid nephrotoxic agents Diabetes type 2 [id number] Blood sugars before meals and at bedtime with sliding scale insulin Carb controlled diet when off BiPAP Hypothyroidism Continue home Synthroid TSH/T4 pending Hypertension Resume home medication appropriate Chronic anemia Hemoglobin 7.8 in ER Scheduled to receive 1 unit per ER Will check CBC DVT PPX- SCDs Full code Discharge Plan: Home Plan to discharge in: 48 Hours - Advance Directives Does patient have a Living Will: No Does patient have a Durable POA for Healthcare: No - Code Status/Comfort Care Code Status Assessed: Yes (Full code) Critical Care: No Time Spent Managing Pts Care (In Minutes): 50
[2022-04-01] MEDS ORDERED: ONDANSETRON 4 MG/2 ML VIAL IV PRN (15:53)
[2022-04-01] MEDS ORDERED: NA CHLORIDE 0.9% 250 ML ONE (15:54)
[2022-04-01] MEDS ORDERED: SODIUM CHLORIDE 0.9% 10ML INJ IV PRN (15:57)
[2022-04-01] MEDS: NA CHLORIDE 0.9% 1,000 ML IV SCH ×2 (16:00→21:00)
[2022-04-01] MEDS: INSULIN -REGULAR HUMAN 50 UNIT/0.5 ML ML SQ SCH ×2 (16:30→21:01)
[2022-04-01 18:09] LABS: Absolute Lymphocytes (CBC) 0.2 K/uL (0.7-4.9); Hematocrit 26.3 % (36.0-45.0); Lymphocytes % 1.6 % (15.3-44.8); MCV 72.6 fL (80-100); MPV 8.1 fL (7.6-11.3); RBC Red Blood Cell Count 3.62 M/uL (3.86-4.86)
[2022-04-01 18:10] LABS: Platelet Estimate ADEQ; White Blood Cell Scan OK (OK)
[2022-04-01 18:11] LABS: Blood Morphology Comment NOTED (NOT SEEN); Hypochromasia 1+
[2022-04-01] MEDS: METHYLPREDNISOLONE 40 MG INJ IV SCH (18:45)
[2022-04-01 19:29] LABS: Thyroid Stimulating Hormone 0.033 uIU/mL (0.358-3.740)
[2022-04-01] MEDS: ALBUTEROL 2.5 MG/3 ML NEB SOL NEB SCH (20:00)
[2022-04-01] MEDS: NICOTINE 21 MG/PAT TD SCH (21:00)
[2022-04-02] MEDS: METHYLPREDNISOLONE 40 MG INJ IV SCH ×2 (00:37→05:24)
[2022-04-02] MEDS ORDERED: Meropenem 500 MG in NA CHLORIDE 0.9% 100 ML IV SCH (01:00)
[2022-04-02] MEDS ORDERED: NA CHLORIDE 0.9% 250 ML ONE (01:49)
[2022-04-02] MEDS: ALBUTEROL 2.5 MG/3 ML NEB SOL NEB SCH ×4 (02:00→20:55)
[2022-04-02 02:44] VITALS: BMI 33.8
[2022-04-02] MEDS: INSULIN -REGULAR HUMAN 50 UNIT/0.5 ML ML SQ SCH ×4 (07:30→21:00)
[2022-04-02 08:20] LABS: Absolute Lymphocytes (CBC) 0.3 K/uL (0.7-4.9); Hematocrit 32.6 % (36.0-45.0); Lymphocytes % 1.6 % (15.3-44.8); MCV 74.2 fL (80-100); MPV 8.1 fL (7.6-11.3)
[2022-04-02 08:37] LABS: Magnesium 2.8 mg/dL (1.6-2.4); Potassium 4.7 mmol/L (3.5-5.1)
[2022-04-02] MEDS: PANTOPRAZOLE 40 MG INJ IVP SCH (09:04)
[2022-04-02] MEDS: NICOTINE 21 MG/PAT TD SCH (09:04)
[2022-04-02 09:10] LABS: Blood Morphology Comment NOT SEEN (NOT SEEN); Platelet Estimate ADEQ
[2022-04-02] MEDS: DULERA 200/5 (MOMETASONE/FORMOTEROL) INHALER IH SCH ×2 (11:07→22:00)
--- NOTE | 2022-04-02 11:07 | P.CNS ---
Date of Consult: 04/02/22 Primary Care Provider: Angi Chief Complaint: COPD exacerbation, UTI History of Present Illness: Patient is 77 years of age admitted with worsening dyspnea weakness found to be COVID-positive she has not been vaccinated heavy smoker uses Advair on a as needed basis feeling very weak Allergies codeine Allergy (Verified 04/01/22 18:38) Itching Penicillins Allergy (Verified 04/01/22 18:38) Itching Sulfa (Sulfonamide Antibiotics) Allergy (Verified 04/01/22 18:38) Itching Tetracyclines Allergy (Verified 04/01/22 18:38) Itching Home Medications: Metformin HCl [Glucophage*] 500 mg PO BIDWM 05/09/14 Aspirin [Aspirin EC 81 MG] 81 mg PO DAILY 05/13/14 Fenofibrate [Tricor*] 160 mg PO DAILY 05/13/14 Levothyroxine Sodium 175 mcg PO DAILY 05/13/14 oxyBUTYnin chloride [Ditropan*] 5 mg PO BID 05/13/14 Clopidogrel Bisulfate [Plavix] 75 mg PO DAILY #30 tablet 05/14/14 Losartan Potassium [Cozaar] 100 mg PO DAILY 01/09/17 NaCl 0.9% Irr Bottle [Ns Irrigation Bottle] 1,000 ml IR DAILY #1 btl 01/09/17 Tramadol HCl/Acetaminophen [Ultracet Tablet] 1 each PO Q4H #30 tablet 01/09/17 - Past Medical/Surgical History Diabetic: Yes -: COPD -: DM -: Hysterectomy - Social History Smoking Status: Current every day smoker Alcohol use: No CD- Drugs: No Caffeine use: Yes Place of Residence: Home Review of Systems 10-point ROS is otherwise unremarkable General: Weakness Respiratory: Cough, Shortness of Breath Physical Examination Temp Pulse Resp BP Pulse Ox 97.7 F 88 20 117/61 90 L 04/02/22 03:19 04/02/22 08:00 04/02/22 08:00 04/02/22 08:00 04/02/22 08:00 General: Alert, Oriented x3, Mild distress Cardiovascular: No edema, Regular rate/rhythm Laboratory Data (last 24 hrs) 04/01/22 14:01: Sodium 130 L, Potassium 4.2, BUN 40 H, Creatinine 1.62 H, Glucose 231 H, Magnesium 2.4, Total Bilirubin 0.4, AST 40 H, ALT 26, Alkaline Phosphatase 55 04/01/22 12:48: PT 12.2, INR 1.11, APTT 29.8 04/01/22 12:48: Sodium 132 L, Potassium 4.3, BUN 39 H, Creatinine 1.79 H, Glucose 269 H, Total Bilirubin 0.5, AST 47 H, ALT 29, Alkaline Phosphatase 65 04/01/22 12:48: WBC 12.70 H, Hgb 7.8 L, Hct 26.3 L, Plt Count 266 - Problems (1) COVID Current Visit: Yes Status: Acute Plan: Patient is 77 years of age has been sick for about 2 to 3 days feeling weak shortness of breath cough said positive for COVID history of COPD active heavy smoker chronic renal failure renal function is improving microcytic anemia changed to dexamethasone Rocephin and Zithromax patient is not at risk for resistant infection also has a microcytic anemia will need work-up as an outpatient patient was transfused no iron studies I also ordered Paxlovid x-ray abnormal right basilar infiltrate interstitial changes renal function improving with IV fluids
[2022-04-02] MEDS: NA CHLORIDE 0.9% 1,000 ML IV SCH (12:00)
[2022-04-02] MEDS ORDERED: NA CHLORIDE 0.9% 1,000 ML IV SCH (12:45)
[2022-04-02] MEDS: AZITHROMYCIN 250 MG TAB PO SCH (13:56)
--- NOTE | 2022-04-02 15:30 | P.PN ---
Subjective Date of Service: 04/02/22 Subjective: No new changes, No C/O voiced, Improving Patient is still having some respiratory distress. Patient denies any new complaints. Patient's clinical symptoms are stable. Review of Systems 10-point ROS is otherwise unremarkable Physical Examination - Vital Signs Temperature: 97.9 F Blood Pressure: 128/61 Pulse: 99 Respirations: 20 Pulse Ox (%): 90 - Physical Exam General: Alert, In no apparent distress, Oriented x3 HEENT: Atraumatic, PERRLA, EOMI Neck: Supple, JVD not distended Respiratory: Diminished, Expiratory wheezes Cardiovascular: Regular rate/rhythm, Normal S1 S2, No murmurs Gastrointestinal: Normal bowel sounds, No tenderness Musculoskeletal: No clubbing, No swelling, No tenderness Integumentary: No rashes Neurological: Sensation intact, Cranial nerves 3-12 intact - Studies Medications List Reviewed: Yes Assessment & Plan - Problems (Diagnosis) (1) COVID Current Visit: Yes Status: Acute (2) Hyponatremia Onset Date: 05/12/14 Current Visit: No Status: Acute (3) COPD (chronic obstructive pulmonary disease) Onset Date: 05/12/14 Current Visit: No Status: Chronic (4) Diabetes Onset Date: 05/12/14 Current Visit: No Status: Chronic (5) VICKY (acute kidney injury) Current Visit: Yes Status: Acute (6) Anemia Current Visit: Yes Status: Acute - Plan 1. IV steroids & Paxlovid 2. O2 per protocol 3. Pulmonary consultation appreciaated 4. Monitor labs 5. We will address vaccination status 6. If doing well may be able to discharge on Paxlovid - Advance Directives Does patient have a Living Will: No Does patient have a Durable POA for Healthcare: No
[2022-04-02] MEDS ORDERED: dexAMETHasone 4 MG/ML VIAL IV SCH (21:00)
[2022-04-02] MEDS: dexAMETHasone 4 MG/ML VIAL IV SCH (22:00)
[2022-04-02] MEDS: NIRMATRELVIR/RITONAVIR TABLET PO SCH (22:01)
[2022-04-03] MEDS: ALBUTEROL 2.5 MG/3 ML NEB SOL NEB SCH ×4 (03:10→21:21)
[2022-04-03 04:18] LABS: Absolute Lymphocytes (CBC) 0.2 K/uL (0.7-4.9); Hematocrit 31.6 % (36.0-45.0); Lymphocytes % 1.1 % (15.3-44.8); MCV 74.1 fL (80-100); MPV 7.9 fL (7.6-11.3); RBC Red Blood Cell Count 4.27 M/uL (3.86-4.86)
[2022-04-03 04:32] LABS: Potassium 5.1 mmol/L (3.5-5.1)
[2022-04-03 04:40] LABS: Magnesium 2.7 mg/dL (1.6-2.4)
[2022-04-03] MEDS: INSULIN -REGULAR HUMAN 50 UNIT/0.5 ML ML SQ SCH ×4 (07:30→20:17)
--- NOTE | 2022-04-03 08:15 | RAD REPORT ---
[facility] DES[facility] 6:57 am CLINICAL HISTORY: pneumonia COMPARISON: Chest Single View dated 04/01/2022; Chest Pa And Lat (2 Views) dated 01/09/2017; CHEST SIN GLE VIEW dated 05/09/2014 TECHNIQUE: Portable AP view of the chest. FINDINGS: Moderate to advanced cardiomegaly. Progressive bilateral interstitial prominence, and bila teral hazy opacities. No pneumothorax or effusion. The mediastinal contours are within normal limits. IMPRESSION: Findings suggestive of congestive heart failure. Additional hazy bilateral opacities cou ld reflect a degree of pulmonary edema, less likely superimposed pneumonia.
[2022-04-03] MEDS: PANTOPRAZOLE 40 MG INJ IVP SCH (09:24)
[2022-04-03] MEDS: CEFTRIAXONE 1,000 MG in NA CHLORIDE 0.9% 50 ML IVPB SCH (09:25)
[2022-04-03] MEDS: AZITHROMYCIN 250 MG TAB PO SCH (09:28)
[2022-04-03] MEDS: NICOTINE 21 MG/PAT TD SCH (09:28)
[2022-04-03] MEDS: NIRMATRELVIR/RITONAVIR TABLET PO SCH ×2 (09:32→21:09)
[2022-04-03] MEDS: dexAMETHasone 4 MG/ML VIAL IV SCH ×2 (09:32→21:09)
[2022-04-03] MEDS: DULERA 200/5 (MOMETASONE/FORMOTEROL) INHALER IH SCH ×2 (09:38→21:15)
[2022-04-03] MEDS ORDERED: FUROSEMIDE 40 MG/4 ML VIAL IV ONE (11:04)
[2022-04-04] MEDS: ALBUTEROL 2.5 MG/3 ML NEB SOL NEB SCH ×4 (02:20→19:40)
[2022-04-04 06:14] LABS: Absolute Lymphocytes (CBC) 0.3 K/uL (0.7-4.9); RBC Red Blood Cell Count 4.23 M/uL (3.86-4.86)
[2022-04-04 06:23] LABS: Magnesium 2.4 mg/dL (1.6-2.4); Phosphorus 2.2 mg/dL (2.5-4.9); Potassium 4.4 mmol/L (3.5-5.1)
[2022-04-04 06:26] LABS: Hematocrit 30.9 % (36.0-45.0); Lymphocytes % 1.9 % (15.3-44.8); MCV 73.1 fL (80-100); MPV 8.2 fL (7.6-11.3)
[2022-04-04 06:28] LABS: Troponin High Sensitivity 23.4 pg/mL (<58.9)
--- NOTE | 2022-04-04 07:20 | P.PN ---
Date of Service: 04/03/22
[2022-04-04] MEDS: INSULIN -REGULAR HUMAN 50 UNIT/0.5 ML ML SQ SCH ×4 (07:30→20:45)
[2022-04-04] MEDS: ARFORMOTEROL TARTRATE 15 MCG/2 ML VIAL.NEB NEB SCH ×2 (08:34→19:40)
[2022-04-04] MEDS: AZITHROMYCIN 250 MG TAB PO SCH (09:00)
--- NOTE | 2022-04-04 09:06 | P.PN ---
Subjective Date of Service: 04/04/22 Primary Care Provider: Angi Chief Complaint: COPD exacerbation, UTI No acute events overnight. She states that she continues to remove her BiPAP mask overnight due to it being uncomfortable; however, she has significant shortness of breath and orthopnea without the BiPAP mask on. She denies any chest pain or palpitations. Review of Systems 10-point ROS is otherwise unremarkable Respiratory: Shortness of Breath Cardiovascular: Orthopnea, Edema Physical Examination - Vital Signs Temperature: 96.8 F Blood Pressure: 121/58 Pulse: 73 Respirations: 22 Pulse Ox (%): 98 - Physical Exam General: Alert, Oriented x3, Mild distress HEENT: Atraumatic, Mucous membr. moist/pink, EOMI, Sclerae nonicteric Neck: JVD not distended Respiratory: Diminished, Crackles/rales, Rhonchi/gurgles, Other (on BiPAP) Cardiovascular: Regular rate/rhythm, Normal S1 S2, No gallops, No rubs, No murmurs, Edema (1+ BLE) Gastrointestinal: Normal bowel sounds, Soft and benign, No tenderness, No rebound, No guarding Musculoskeletal: No clubbing Integumentary: No rashes Neurological: Normal speech, Normal affect - Studies Medications List Reviewed: Yes Assessment And Plan - Plan # Acute Hypoxic Respiratory Failure - likely Multifactorial secondary to Acute Chronic Obstructive Pulmonary Disease Exacerbation, possible Acute Decompensated Congestive Heart Failure Exacerbation, and COVID-19 Pneumonia Upon presentation, her SpO2 was 72 %. Currently, she is on BiPAP, with improvement of her SpO2 readings to 94-98 %. - Evaluation thus far: - Procalcitonin = 1.33 - COVID-19 = positive - ABG = pH 7.30, PCO2 49.2, PO2 82.5 - Chest x-ray (04/01) = "mild to moderate bilateral pulmonary opacities may represent pneumonia or pulmonary edema" - Chest x-ray (04/03) = "findings suggestive of congestive heart failure. Additional hazy bilateral opacities could reflect a degree of pulmonary edema, less likely superimposed pneumonia." - V/Q scan = pending - Transthoracic echocardiogram = pending - Management plan: - Consulted Pulmonary Medicine - recommendations appreciated - Steroids + bronchodilators per Pulm - Continue nirmatrelvir/ritonavir - Consulted Cardiology - recommendations appreciated - Diursesis per Cardiology - Consulted Respiratory Therapy - Supplemental oxygen to maintain SpO2 > 92% - Continue ceftriaxone + azithromycin - PRN benzonatate, guaifenesin - Encouraged incentive spirometry - Strict I/O - Daily weights # Severe Viral Sepsis suspect secondary to COVID-19 Pneumonia # Suspect Asymptomatic Bacteruria (not UTI - denies any urinary symptoms) She met sepsis criteria based on HR > 90 bpm, RR > 20 breaths/min, and WBC > 1 2,000 (likely component of steroid-induced leukocytosis), and the suspected source is COVID-19. Severe sepsis is suspected due to concern for tissue hypoperfusion/organ dysfunction based on acute respiratory failure requiring CPAP/BiPAP. - Sepsis order set was initiated - Lactate trend: 2.2 -> 1.2 - Blood cultures x 2 drawn = NGTD - Broad spectrum antimicrobials started: Ceftriaxone + Azithromycin + Nirmatrelvir/Ritonavir - In regards to fluids: - 30 mL/kg of IV fluids was not administered given SBP > 90, MAP > 65, lactic acid < 4 # Steroid-Induced Hyperglycemia in Type II Diabetes Mellitus - Unable to obtain Hgb A1c as she is s/p pRBC transfusion - Continue correction scale insulin # KDIGO Stage I Acute Kidney Injury - Creatinine = 1.79 -> 1.62 -> 1.35 -> 1.32 -> 1.26 (creatinine was 0.91 in March 2018) - Urinalysis = 2+ blood, positive nitrite, occasional WBC clumps, 510 WBCs, >50 bacteria, 3+ protein - Monitor creatinine and urine output - If worsening, obtain renal ultrasound - Renally dose medications # Chronic Anemia - No current evidence of bleeding - S/P 2 units pRBCs this hospitalization, with stabilization of Hgb - Daily CBC # Hyperthyroidism with History of Hypothyroidism - Possibly secondary to over-supplementation - TSH 0.033, Free T4 1.49 - Hold home levothyroxine # Hypertension - Hold home anti-hypertensives for now given concern for sepsis Hal Mittal M.D.
[2022-04-04] MEDS ORDERED: guaiFENesin 100 MG/5 ML UCUP PO PRN (09:18)
[2022-04-04] MEDS: POTASS/SODIUM PHOSPHATE 1 PKT POWD.PACK PO SCH ×3 (09:20→11:38)
[2022-04-04] MEDS: dexAMETHasone 4 MG/ML VIAL IV SCH ×2 (09:21→20:54)
[2022-04-04] MEDS: NICOTINE 21 MG/PAT TD SCH (09:22)
[2022-04-04] MEDS: NIRMATRELVIR/RITONAVIR TABLET PO SCH ×2 (09:22→20:55)
[2022-04-04] MEDS: CEFTRIAXONE 1,000 MG in NA CHLORIDE 0.9% 50 ML IVPB SCH (09:23)
[2022-04-04] MEDS: ENOXAPARIN 40 MG/0.4 ML SQ SCH (09:33)
[2022-04-04] MEDS: THIAMINE 200 MG/2 ML INJ IVP SCH ×2 (09:33→20:53)
--- NOTE | 2022-04-04 12:14 | P.PN ---
Subjective Date of Service: 04/04/22 Primary Care Provider: Angi Chief Complaint: COPD exacerbation, UTI delirium COVID-positive Subjective: Worsening (Patient's condition has deteriorated she has become more delirious disoriented) Review of Systems is unable to be obtained Physical Examination - Vital Signs Temperature: 97.6 F Blood Pressure: 132/82 Pulse: 80 Respirations: 24 Pulse Ox (%): 95 - Physical Exam General: Alert, Oriented x1, Delirious Respiratory: Rhonchi/gurgles Cardiovascular: No edema, Regular rate/rhythm, Normal S1 S2 - Studies Medications List Reviewed: Yes Assessment And Plan - Current Problems (Diagnosis) (1) COVID Current Visit: Yes Status: Acute Plan: Patient is 77 years of age admitted with COVID-pneumonia heavy smoker now delirious evaluate thiamine increase Decadron chest x-ray shows significant interstitial change microcytic anemia White count declining requiring by BiPAP/high flow
[2022-04-04] MEDS: IPRATROPIUM BROM 0.5MG/2.5ML NEB SCH ×2 (14:00→19:40)
[2022-04-04] MEDS: METFORMIN HCL 500 MG TAB PO SCH (17:00)
--- NOTE | 2022-04-04 18:49 | EKG ---
Test Date: 2022-04-01 Test Time: 12:44:37 Cut Off Machine Unloader: HB MEASUREMENT RESULTS: Intervals: Rate: 112 MO: 200 QRSD: 98 QT: 302 QTc: 412 [place]: P: 70 MO: 200 QRS: 24 T: 92 INTERPRETIVE STATEMENTS: Sinus tachycardia Low voltage QRS ST & T wave abnormality, consider lateral ischemia Abnormal ECG Compared to ECG 04/03/2018 16:03:23 Low QRS voltage now present Possible ischemia now present Sinus rhythm no longer present ST (T wave) deviation still present Electronically Signed On 04-04-22 18:43:34 TRANSPORTATION LEAD by Gray Allen
--- NOTE | 2022-04-05 01:38 | CON ---
Date of Consultation: 04/04/2022 Reason For Consultation: Shortness of breath, questionable CHF. History Of Present Illness: A 77-year-old female, history of COPD, hypothyroidism, anemia, hypertens ion, presented to the emergency room with shortness of breath, generalized weakness and cough, requir ing BiPAP initially. She was hospitalized for respiratory failure, found to have COVID-19 pneumonia. I was asked to see the patient, rule out congestive heart failure as a cause. She does not have an y orthopnea or lower extremity edema. Past Medical History: As outlined above in the HPI. Medications: Refer to reconciliation sheet for detailed list. Allergies: CODEINE, PENICILLIN, SULFA, AND TETRACYCLINE. Family History: No premature coronary artery disease or cancer. Social History: She is an active smoker. Does not drink or use any drugs. Review of Systems: All systems were reviewed, they were negative except as mentioned in HPI. Physical Examination: Vital Signs: Reviewed. Head and Neck: Pupils are equal, reactive to light. Intact eye movements. No cervical lymphadenopa thy. Neck is supple. Thyroid is not enlarged. Lungs: Decreased breathing sounds with wheezing bilaterally and rhonchi. Slight increased respirato ry effort. Heart: Irregular. No extra sounds. Abdomen: Soft, nontender. Bowel sounds positive. No organomegaly. No masses or hernia. No rigidi ty or rebound. Extremities: No clubbing or cyanosis. No edema. Skin: No rash noted. Neurologic: Alert, awake, oriented x3. No acute focal deficits appreciated. Investigations: BUN 51, creatinine 1.26. NT-proBNP is 519, and troponins are negative. Hemoglobin is 19.5. Assessment And Recommendation: 1.Acute hypoxic respiratory failure due to pneumonia and COVID-19 infection. To evaluate for the pr esence of congestive heart failure. Obtain echocardiogram to assess, but clinically she does not katerine ear to be fluid overloaded and I do not see an indication for diuresis at this point, however, furthe r plan will commence after the echo. 2.Chronic obstructive pulmonary disease with acute exacerbation, likely is the cause of her acute re spiratory failure. 3.COVID-19 infection, on antibiotics and supportive care. SR/MODL Voice ID: [id number] Report ID: [id number]
[2022-04-05] MEDS: IPRATROPIUM BROM 0.5MG/2.5ML NEB SCH ×4 (01:55→20:00)
[2022-04-05] MEDS: ALBUTEROL 2.5 MG/3 ML NEB SOL NEB SCH ×4 (01:55→20:00)
[2022-04-05 05:59] LABS: Arterial Blood Carboxyhemoglob 1.4 % (0-1.5); Blood Gas Oxyhemoglobin 89.2 % (94-97); Blood O2 Saturation 91.5 % (92-98.5)
[2022-04-05 06:25] LABS: Absolute Lymphocytes (CBC) 0.4 K/uL (0.7-4.9); Hematocrit 31.9 % (36.0-45.0); Lymphocytes % 2.8 % (15.3-44.8); MCV 72.9 fL (80-100); RBC Red Blood Cell Count 4.38 M/uL (3.86-4.86)
[2022-04-05] MEDS ORDERED: LEVOTHYROXINE SOD 0.1 MG TAB PO SCH (06:30)
[2022-04-05] MEDS ORDERED: LEVOTHYROXINE SOD 0.075 MG TAB PO SCH (06:30)
[2022-04-05 06:38] LABS: Magnesium 2.5 mg/dL (1.6-2.4); Phosphorus 2.5 mg/dL (2.5-4.9); Potassium 4.6 mmol/L (3.5-5.1)
--- NOTE | 2022-04-05 07:13 | ECHO ---
HEIGHT: 5 ft 2 in WEIGHT: 185 lb 0 oz DATE OF STUDY: 04/04/[address]: Joseluis Taylor MD 2-DIMENSIONAL: YES M.MODE: YES DOPPLER: YES COLOR FLOW: YES TDS: YES PORTABLE: YES DEFINITY: BUBBLE STUDY: DIAGNOSIS: CONGESTIVE HEART FAILURE CARDIAC HISTORY: CATHERIZATION: NO SURGERY: NO PROSTHETIC VALVE: NO PACEMAKER: NO MEASUREMENTS (cm) DIASTOLIC (NORMALS) SYSTOLIC (NORMALS) IVSd 1.0 (0.6-1.2) LA Diam 3.0 (1.9-4.0) LVEF 77% LVIDd 4.9 (3.5-5.7) LVIDs 2.6 (2.0-3.5) %FS 46% LVPWd 1.1 (0.6-1.2) Ao Diam 2.6 (2.0-3.7) 2 DIMENSIONAL ASSESSMENT: RIGHT ATRIUM: NORMAL LEFT ATRIUM: NORMAL RIGHT VENTRICLE: NORMAL LEFT VENTRICLE: NORMAL TRICUSPID VALVE: MILD TRICUSPID REGURGITATION MITRAL VALVE: NORMAL PULMONIC VALVE: NORMAL AORTIC VALVE: NORMAL PERICARDIAL EFFUSION: NONE AORTIC ROOT: NORMAL LEFT VENTRICULAR WALL MOTION: NORMAL DOPPLER/COLOR FLOW: MILD TRICUSPID REGURGITATION COMMENTS: 1. NORMAL LEFT VENTRICULAR EJECTION FRACTION 60-65% 2. NORMAL WALL MOTION 3. MILD DIASTOLIC DYSFUCNTION 4. MILD TRICUSPID REGURGITATION TECHNOLOGIST: TRISTEN HAWLEY
[2022-04-05] MEDS: INSULIN -REGULAR HUMAN 50 UNIT/0.5 ML ML SQ SCH ×4 (07:30→21:00)
[2022-04-05 08:00] LABS: Anisocytosis 1+; Blood Morphology Comment NOTED (NOT SEEN); Platelet Estimate ADEQ
[2022-04-05] MEDS: ARFORMOTEROL TARTRATE 15 MCG/2 ML VIAL.NEB NEB SCH ×2 (08:22→20:00)
[2022-04-05] MEDS ORDERED: HOME MED 1 EA UNK (Levothyroxine Sodium [Levothyroxine Sodium] 150 MCG Tablet) PO SCH (09:00)
[2022-04-05] MEDS: NIRMATRELVIR/RITONAVIR TABLET PO SCH ×2 (09:49→21:34)
[2022-04-05] MEDS: dexAMETHasone 4 MG/ML VIAL IV SCH ×2 (09:50→21:34)
[2022-04-05] MEDS: NICOTINE 21 MG/PAT TD SCH (09:50)
[2022-04-05] MEDS: METFORMIN HCL 500 MG TAB PO SCH ×2 (09:50→17:00)
[2022-04-05] MEDS: AZITHROMYCIN 250 MG TAB PO SCH (09:50)
[2022-04-05] MEDS: THIAMINE 200 MG/2 ML INJ IVP SCH ×2 (09:51→21:33)
[2022-04-05] MEDS: CEFTRIAXONE 1,000 MG in NA CHLORIDE 0.9% 50 ML IVPB SCH (09:52)
[2022-04-05] MEDS: ENOXAPARIN 40 MG/0.4 ML SQ SCH (09:52)
[2022-04-05] MEDS ORDERED: HOME MED 1 EA UNK (Losartan Potassium [Cozaar] 100 MG) PO SCH (12:19)
--- NOTE | 2022-04-05 12:20 | P.PN ---
Subjective Date of Service: 04/05/22 Primary Care Provider: Angi Chief Complaint: COPD exacerbation, UTI delirium COVID-positive Subjective: Improving (Patient is much better today more alert responsive cooperative feeling better) Review of Systems General: Weakness Respiratory: Cough, Shortness of Breath Physical Examination - Vital Signs Temperature: 97.5 F Blood Pressure: 161/67 Pulse: 71 Respirations: 16 Pulse Ox (%): 93 - Physical Exam General: Alert, Oriented x3, Mild distress Cardiovascular: No edema, Regular rate/rhythm - Studies Medications List Reviewed: Yes Assessment And Plan - Current Problems (Diagnosis) (1) COVID Current Visit: Yes Status: Acute Plan: Patient admitted with COVID-pneumonia doing much better more alert renal function White count improving also add half-normal saline renal function may improve we will move cultures are so far negative still requiring high flow oxygen on 10 L sat 91% blood pressure elevated resume losartan
[2022-04-05] MEDS: LOSARTAN POTASSIUM 50 MG TABLET PO SCH (14:53)
[2022-04-05] MEDS: NACHLORIDE 0.45% 1,000 ML IV SCH (14:53)
--- NOTE | 2022-04-05 16:50 | P.PN ---
Subjective Date of Service: 04/05/22 Primary Care Provider: Angi Chief Complaint: COPD exacerbation, UTI delirium COVID-positive No acute events overnight. She is gradually improving. She was titrated off of BiPAP and is now on HFNC; She reports mild shortness of breath with orthopnea. She denies any chest pain or palpitations. Review of Systems 10-point ROS is otherwise unremarkable Respiratory: Shortness of Breath Cardiovascular: Orthopnea Physical Examination - Vital Signs Temperature: 97.5 F Blood Pressure: 149/70 Pulse: 76 Respirations: 16 Pulse Ox (%): 96 - Studies Medications List Reviewed: Yes Assessment And Plan - Plan - Physical Exam General: Alert, Oriented x3, No distress HEENT: Atraumatic, EOMI, Sclerae nonicteric Neck: JVD not distended Respiratory: Diminished, Crackles/rales, Rhonchi/gurgles, Other (on HFNC) Cardiovascular: Regular rate/rhythm, Normal S1 S2, No murmurs, Edema (1+ BLE) Gastrointestinal: Normal bowel sounds, Soft and benign, No tenderness Musculoskeletal: No clubbing Integumentary: No rashes Neurological: Normal speech, Normal affect # Acute Hypoxic Respiratory Failure - likely Multifactorial secondary to Acute Chronic Obstructive Pulmonary Disease Exacerbation and COVID-19 Pneumonia Upon presentation, her SpO2 was 72 %. Currently, she is on HFNC, with improvement of her SpO2 readings to 94-98 %. - Evaluation thus far: - Procalcitonin = 1.33 - COVID-19 = positive - ABG = pH 7.30, PCO2 49.2, PO2 82.5 - Chest x-ray (04/01) = "mild to moderate bilateral pulmonary opacities may represent pneumonia or pulmonary edema" - Chest x-ray (04/03) = "findings suggestive of congestive heart failure. Additional hazy bilateral opacities could reflect a degree of pulmonary edema, less likely superimposed pneumonia." - CT chest angiogram = pending - Transthoracic echocardiogram = "1. normal left ventricular ejection fraction 60-65% 2. normal wall motion 3. mild diastolic dysfucntion 4. mild tricuspid regurgitation" - Management plan: - Consulted Pulmonary Medicine - recommendations appreciated - Steroids + bronchodilators per Pulm - Continue nirmatrelvir/ritonavir - Consulted Cardiology - recommendations appreciated - Diursesis per Cardiology - Consulted Respiratory Therapy - Supplemental oxygen to maintain SpO2 > 92% - Continue ceftriaxone + azithromycin - PRN benzonatate, guaifenesin - Encouraged incentive spirometry - Strict I/O - Daily weights # Severe Viral Sepsis suspect secondary to COVID-19 Pneumonia # Suspect Asymptomatic Bacteruria (not UTI - denies any urinary symptoms) She met sepsis criteria based on HR > 90 bpm, RR > 20 breaths/min, and WBC > 12,000 (likely component of steroid-induced leukocytosis), and the suspected source is COVID-19. Severe sepsis is suspected due to concern for tissue hypoperfusion/organ dysfunction based on acute respiratory failure requiring CP AP/BiPAP. - Sepsis order set was initiated - Lactate trend: 2.2 -> 1.2 - Blood cultures x 2 drawn = NGTD - Broad spectrum antimicrobials started: Ceftriaxone + Azithromycin + Nirmatrelvir/Ritonavir - In regards to fluids: - 30 mL/kg of IV fluids was not administered given SBP > 90, MAP > 65, lactic acid < 4 # Steroid-Induced Hyperglycemia in Type II Diabetes Mellitus - Unable to obtain Hgb A1c as she is s/p pRBC transfusion - Continue correction scale insulin # KDIGO Stage I Acute Kidney Injury - Creatinine = 1.79 -> 1.62 -> 1.35 -> 1.32 -> 1.26 -> 1.10 (creatinine was 0.91 in March 2018) - Urinalysis = 2+ blood, positive nitrite, occasional WBC clumps, 510 WBCs, >50 bacteria, 3+ protein - Monitor creatinine and urine output - If worsening, obtain renal ultrasound - Renally dose medications # Chronic Anemia - No current evidence of bleeding - S/P 2 units pRBCs this hospitalization, with stabilization of Hgb - Daily CBC # Hyperthyroidism with History of Hypothyroidism - Possibly secondary to over-supplementation - TSH 0.033, Free T4 1.49 - Hold home levothyroxine # Hypertension - Hold home anti-hypertensives for now given concern for sepsis Hal Mittal M.D.
--- NOTE | 2022-04-05 23:12 | RAD REPORT ---
EXAM DESCRIPTION: CT - Chest For Pe Angio - 04/05/2022 11:02 pm CLINICAL HISTORY: rule out PE COMPARISON: Chest Single View dated 04/03/2022; Chest Single View dated 04/01/2022 TECHNIQUE: Dynamically enhanced axial 3 mm thick images of the chest were obtained during administra tion of <100> mL Isovue 370 IV contrast. Coronal and oblique reconstruction images were generated and reviewed. Exam utilizes a protocol for optimal evaluation of pulmonary arterial tree. Maximum intensity projections 3D imaging was utilized All CT scans are performed using dose optimization technique as appropriate and may include automated exposure control or mA/KV adjustment according to patient size. FINDINGS: Chest Wall: No suspicious thyroid nodules or pathologic lymphadenopathy. Lungs: Ground-glass opacities present bilaterally. Mild dependent consolidation noted. Emphysema. Pleura: Small bilateral pleural effusions. Mediastinum/milton: No pathologic lymphadenopathy. Pulmonary arteries/Aorta: No filling defect identified. No aortic aneurysm. Heart: No significant pericardial effusion. Normal heart size. Multi-vessel coronary artery disease. Upper abdomen: No acute abnormality. Bones: No acute abnormality. IMPRESSION: Negative for pulmonary embolism. Small pleural effusions with mild dependent consolidation and scattered ground-glass opacities could represent a combination of multifocal pneumonia and edema.
[2022-04-06] MEDS: ALBUTEROL 2.5 MG/3 ML NEB SOL NEB SCH ×4 (01:45→20:30)
[2022-04-06] MEDS: IPRATROPIUM BROM 0.5MG/2.5ML NEB SCH ×4 (01:55→20:30)
[2022-04-06] MEDS: NACHLORIDE 0.45% 1,000 ML IV SCH ×2 (05:50→16:50)
[2022-04-06 06:32] LABS: Potassium 4.7 mmol/L (3.5-5.1)
[2022-04-06 06:53] LABS: Absolute Lymphocytes (CBC) 0.3 K/uL (0.7-4.9); Hematocrit 31.4 % (36.0-45.0); Lymphocytes % 2.3 % (15.3-44.8); MCV 73.2 fL (80-100); MPV 8.3 fL (7.6-11.3); RBC Red Blood Cell Count 4.29 M/uL (3.86-4.86)
[2022-04-06] MEDS: INSULIN -REGULAR HUMAN 50 UNIT/0.5 ML ML SQ SCH ×4 (07:30→21:00)
--- NOTE | 2022-04-06 08:00 | RAD REPORT ---
EXAM DESCRIPTION: [place] Single View3 5:37 am CLINICAL HISTORY: Chest pain COMPARISON: April 05, 2022 FINDINGS: Mild improvement in the right and mild worsening in the left pulmonary opacities which rep resent pulmonary edema or pneumonia. Heart remains enlarged
[2022-04-06] MEDS: ARFORMOTEROL TARTRATE 15 MCG/2 ML VIAL.NEB NEB SCH ×2 (08:30→20:30)
[2022-04-06] MEDS: NIRMATRELVIR/RITONAVIR TABLET PO SCH ×2 (09:00→22:36)
[2022-04-06] MEDS ORDERED: HOME MED 1 EA UNK (Losartan Potassium [Cozaar] 100 MG Tablet) PO SCH (09:00)
[2022-04-06] MEDS: CEFTRIAXONE 1,000 MG in NA CHLORIDE 0.9% 50 ML IVPB SCH (10:34)
[2022-04-06] MEDS: NICOTINE 21 MG/PAT TD SCH (10:35)
[2022-04-06] MEDS: AZITHROMYCIN 250 MG TAB PO SCH (10:35)
[2022-04-06] MEDS: LOSARTAN POTASSIUM 50 MG TABLET PO SCH (10:36)
[2022-04-06] MEDS: dexAMETHasone 4 MG/ML VIAL IV SCH ×2 (10:36→22:37)
[2022-04-06] MEDS: ENOXAPARIN 40 MG/0.4 ML SQ SCH (10:36)
[2022-04-06] MEDS: THIAMINE 200 MG/2 ML INJ IVP SCH ×2 (10:36→22:37)
--- NOTE | 2022-04-06 11:59 | P.PN ---
Subjective Date of Service: 04/06/22 Primary Care Provider: Angi Chief Complaint: Coronavirus pneumonia Patient's condition is stable she still remains delirious Review of Systems is unable to be obtained Physical Examination - Vital Signs Temperature: 97.0 F Blood Pressure: 149/78 Pulse: 75 Respirations: 16 Pulse Ox (%): 94 - Physical Exam General: Alert, Delirious Respiratory: Diminished, Crackles/rales - Studies Medications List Reviewed: Yes Assessment And Plan - Current Problems (Diagnosis) (1) COVID Current Visit: Yes Status: Acute Plan: Patient admitted with coronavirus pneumonia associated with delirium White count is declining continue with present treatment present antibiotics patient is eating and drinking still on 90% FiO2
--- NOTE | 2022-04-06 17:14 | P.PN ---
Subjective Date of Service: 04/06/22 Primary Care Provider: Angi Chief Complaint: Coronavirus pneumonia No acute events overnight. She reports that her breathing is unchanged compared to yesterday. She remains on HFNC. She denies any chest pain or palpitations. Review of Systems 10-point ROS is otherwise unremarkable Respiratory: Shortness of Breath Physical Examination - Vital Signs Temperature: 97.8 F Blood Pressure: 152/60 Pulse: 70 Respirations: 16 Pulse Ox (%): 94 - Studies Microbiology Data (last 24 hrs): 04/01/22 12:40 Blood - Blood Aerobic Blood Culture - Final No growth in 5 days. 04/01/22 12:40 Blood - Blood Anaerobic Blood Culture - Final No growth in 5 days. 04/01/22 12:48 Blood - Blood Aerobic Blood Culture - Final No growth in 5 days. 04/01/22 12:48 Blood - Blood Anaerobic Blood Culture - Final No growth in 5 days. Medications List Reviewed: Yes Assessment And Plan - Plan - Physical Exam General: Alert, Oriented x3, No distress HEENT: Atraumatic, Sclerae nonicteric Neck: JVD not distended Respiratory: Diminished, Crackles/rales, Rhonchi/gurgles, Other (on HFNC, 9 L, FiO2 70 %) Cardiovascular: Regular rate/rhythm, Normal S1 S2, No murmurs, Edema (1+ BLE) Gastrointestinal: Normal bowel sounds, Soft, No tenderness Musculoskeletal: No clubbing Integumentary: No rashes Neurological: Normal speech, Normal affect # Acute Hypoxic Respiratory Failure - likely Multifactorial secondary to Acute Chronic Obstructive Pulmonary Disease Exacerbation and COVID-19 Pneumonia Upon presentation, her SpO2 was 72 %. Currently, she is on HFNC, with improvement of her SpO2 readings to 94-98 %. - Evaluation thus far: - Procalcitonin = 1.33 - COVID-19 = positive - ABG = pH 7.30, PCO2 49.2, PO2 82.5 - Chest x-ray (04/01) = "mild to moderate bilateral pulmonary opacities may represent pneumonia or pulmonary edema" - Chest x-ray (04/03) = "findings suggestive of congestive heart failure. Additional hazy bilateral opacities could reflect a degree of pulmonary edema, less likely superimposed pneumonia." - CT chest angiogram = pending - Transthoracic echocardiogram = "1. normal left ventricular ejection fraction 60-65% 2. normal wall motion 3. mild diastolic dysfucntion 4. mild tricuspid regurgitation" - Management plan: - Consulted Pulmonary Medicine - recommendations appreciated - Steroids + bronchodilators per Pulm - Continue nirmatrelvir/ritonavir - Consulted Cardiology - recommendations appreciated - Diursesis per Cardiology - Consulted Respiratory Therapy - Supplemental oxygen to maintain SpO2 > 92% - Continue ceftriaxone + azithromycin - PRN benzonatate, guaifenesin - Encouraged incentive spirometry - Strict I/O - Daily weights # Severe Viral Sepsis suspect secondary to COVID-19 Pneumonia # Suspect Asymptomatic Bacteruria (not UTI - denies any urinary symptoms) She met sepsis criteria based on HR > 90 bpm, RR > 20 breaths/min, and WBC > 12,000 (likely component of steroid-induced leukocytosis), and the suspected source is COVID-19. Severe sepsis is suspected due to concern for tissue hypoperfusion/organ dysfunction based on acute respiratory failure requiring CPAP/BiPAP. - Sepsis order set was initiated - Lactate trend: 2.2 -> 1.2 - Blood cultures x 2 drawn = NGTD - Broad spectrum antimicrobials started: Ceftriaxone + Azithromycin + Nirmatrelvir/Ritonavir - In regards to fluids: - 30 mL/kg of IV fluids was not administered given SBP > 90, MAP > 65, lactic acid < 4 # Steroid-Induced Hyperglycemia in Type II Diabetes Mellitus - Unable to obtain Hgb A1c as she is s/p pRBC transfusion - Continue correction scale insulin # KDIGO Stage I Acute Kidney Injury - Creatinine = 1.79 -> 1.62 -> 1.35 -> 1.32 -> 1.26 -> 1.10 -> 0.96 (creatinine was 0.91 in March 2018) - Urinalysis = 2+ blood, positive nitrite, occasional WBC clumps, 510 WBCs, >50 bacteria, 3+ protein - Monitor creatinine and urine output - If worsening, obtain renal ultrasound - Renally dose medications # Chronic Anemia - No current evidence of bleeding - S/P 2 units pRBCs this hospitalization, with stabilization of Hgb - Daily CBC # Hyperthyroidism with History of Hypothyroidism - Possibly secondary to over-supplementation - TSH 0.033, Free T4 1.49 - Hold home levothyroxine # Hypertension - Hold home anti-hypertensives for now given concern for sepsis Hal Mittal M.D.
[2022-04-07] MEDS: IPRATROPIUM BROM 0.5MG/2.5ML NEB SCH ×4 (01:10→20:30)
[2022-04-07] MEDS: ALBUTEROL 2.5 MG/3 ML NEB SOL NEB SCH ×2 (01:10→08:00)
[2022-04-07 04:37] LABS: Absolute Lymphocytes (CBC) 0.4 K/uL (0.7-4.9); Hematocrit 31.4 % (36.0-45.0); Lymphocytes % 2.9 % (15.3-44.8); MCV 73.3 fL (80-100); MPV 8.5 fL (7.6-11.3); RBC Red Blood Cell Count 4.28 M/uL (3.86-4.86)
[2022-04-07 04:44] LABS: Potassium 4.8 mmol/L (3.5-5.1)
[2022-04-07] MEDS: NACHLORIDE 0.45% 1,000 ML IV SCH (05:00)
[2022-04-07] MEDS: INSULIN -REGULAR HUMAN 50 UNIT/0.5 ML ML SQ SCH ×4 (07:30→21:00)
[2022-04-07] MEDS: ARFORMOTEROL TARTRATE 15 MCG/2 ML VIAL.NEB NEB SCH ×2 (08:25→20:20)
--- NOTE | 2022-04-07 08:48 | P.PN ---
Subjective Date of Service: 04/07/22 Primary Care Provider: Angi Chief Complaint: Coronavirus pneumonia Patient's condition is stable although her oxygen requirements have increased and 75% FiO2 still alert tachypneic Review of Systems General: Weakness Respiratory: Shortness of Breath Physical Examination - Vital Signs Temperature: 96.5 F Blood Pressure: 175/71 Pulse: 68 Respirations: 19 Pulse Ox (%): 95 - Physical Exam General: Alert, Oriented x1, Cooperative Respiratory: Clear to auscultation bilaterally - Studies Microbiology Data (last 24 hrs): 04/01/22 12:40 Blood - Blood Aerobic Blood Culture - Final No growth in 5 days. 04/01/22 12:40 Blood - Blood Anaerobic Blood Culture - Final No growth in 5 days. 04/01/22 12:48 Blood - Blood Aerobic Blood Culture - Final No growth in 5 days. 04/01/22 12:48 Blood - Blood Anaerobic Blood Culture - Final No growth in 5 days. Medications List Reviewed: Yes Assessment And Plan - Current Problems (Diagnosis) (1) COVID Current Visit: Yes Status: Acute Plan: Patient admitted with coronavirus pneumonia start patient on Barcitinib oxygen requirements have increased chemistries reviewed white count is declining
[2022-04-07] MEDS: AZITHROMYCIN 250 MG TAB PO SCH (09:04)
[2022-04-07] MEDS: LOSARTAN POTASSIUM 50 MG TABLET PO SCH (09:04)
[2022-04-07] MEDS: NICOTINE 21 MG/PAT TD SCH (09:04)
[2022-04-07] MEDS: ACETAMINOPHEN 325 MG TABLET PO PRN ×2 (09:04→21:18)
[2022-04-07] MEDS: NIRMATRELVIR/RITONAVIR TABLET PO SCH (09:05)
[2022-04-07] MEDS: ENOXAPARIN 40 MG/0.4 ML SQ SCH (09:05)
[2022-04-07] MEDS: CEFTRIAXONE 1,000 MG in NA CHLORIDE 0.9% 50 ML IVPB SCH (09:06)
[2022-04-07] MEDS: dexAMETHasone 4 MG/ML VIAL IV SCH ×2 (09:06→21:19)
[2022-04-07] MEDS: THIAMINE 200 MG/2 ML INJ IVP SCH ×2 (09:06→21:19)
[2022-04-07 13:26] LABS: Albumin 2.1 g/dL (3.4-5.0); Bilirubin Direct 0.1 mg/dL (0-0.2); Bilirubin Total 0.4 mg/dL (0.2-1.0); Protein, Total 6.5 g/dL (6.4-8.2)
[2022-04-07] MEDS: ALBUTEROL 2.5 MG/3 ML NEB SOL NEB PRN ×2 (13:50→20:30)
[2022-04-07] MEDS ORDERED: REMDESIVIR (EUA) 200 MG in NA CHLORIDE 0.9% 250 ML IV ONE (16:00)
--- NOTE | 2022-04-07 17:17 | P.PN ---
Subjective Date of Service: 04/07/22 Primary Care Provider: Angi Chief Complaint: Coronavirus pneumonia No acute events overnight. She reports that her breathing seems to be worsening. She remains on HFNC, now up to 25 L. Per discussions with night team, she elected to be a DNI, which has been a changed in her record. She denies any chest pain or palpitations. Review of Systems 10-point ROS is otherwise unremarkable Respiratory: Cough, Shortness of Breath Physical Examination - Vital Signs Temperature: 96.8 F Blood Pressure: 166/71 Pulse: 68 Respirations: 18 Pulse Ox (%): 92 - Studies Microbiology Data (last 24 hrs): 04/01/22 12:40 Blood - Blood Aerobic Blood Culture - Final No growth in 5 days. 04/01/22 12:40 Blood - Blood Anaerobic Blood Culture - Final No growth in 5 days. 04/01/22 12:48 Blood - Blood Aerobic Blood Culture - Final No growth in 5 days. 04/01/22 12:48 Blood - Blood Anaerobic Blood Culture - Final No growth in 5 days. Medications List Reviewed: Yes Assessment And Plan - Plan - Physical Exam General: Alert, Oriented x3, No distress HEENT: Atraumatic, Sclerae nonicteric Neck: JVD not distended Respiratory: Diminished, Scattered rhonchi/gurgles, Other (on HFNC, 25 L) Cardiovascular: Regular rate/rhythm, No murmurs, Edema (1+ BLE) Gastrointestinal: Normal bowel sounds, Soft, No tenderness Musculoskeletal: No clubbing Integumentary: No rashes Neurological: Normal speech, Normal affect # Acute Hypoxic Respiratory Failure - likely Multifactorial secondary to Acute Chronic Obstructive Pulmonary Disease Exacerbation and COVID-19 Pneumonia Upon presentation, her SpO2 was 72 %. Currently, she is on 25 L HFNC, with improvement of her SpO2 readings to ~95 %. - Evaluation thus far: - Procalcitonin = 1.33 - COVID-19 = positive - ABG = pH 7.30, PCO2 49.2, PO2 82.5 - Chest x-ray (04/01) = "mild to moderate bilateral pulmonary opacities may represent pneumonia or pulmonary edema" - Chest x-ray (04/03) = "findings suggestive of congestive heart failure. Additional hazy bilateral opacities could reflect a degree of pulmonary edema, less likely superimposed pneumonia." - CT chest angiogram = "negative for pulmonary embolism. Small pleural effusions with mild dependent consolidation and scattered ground-glass opacities could represent a combination of multifocal pneumonia and edema." - Transthoracic echocardiogram = "1. normal left ventricular ejection fraction 60-65% 2. normal wall motion 3. mild diastolic dysfucntion 4. mild tricuspid regurgitation" - Management plan: - Consulted Pulmonary Medicine and spoke with Dr. Iglesias - recommendations appreciated - Steroids + bronchodilators per Pulm - He stated that he will switch her to remdesiver - Consulted Cardiology - recommendations appreciated - Consulted Respiratory Therapy - Supplemental oxygen to maintain SpO2 > 92% - Continue ceftriaxone - PRN benzonatate, guaifenesin - Encouraged incentive spirometry - Strict I/O - Daily weights # Severe Viral Sepsis suspect secondary to COVID-19 Pneumonia # Suspect Asymptomatic Bacteruria (not UTI - denies any urinary symptoms) She met sepsis criteria based on HR > 90 bpm, RR > 20 breaths/min, and WBC > 12,000 (likely component of steroid-induced leukocytosis), and the suspected source is COVID-19. Severe sepsis is suspected due to concern for tissue hypoperfusion/organ dysfunction based on acute respiratory failure requiring CPAP/BiPAP. - Sepsis order set was initiated - Lactate trend: 2.2 -> 1.2 - Blood cultures x 2 drawn = NGTD - Broad spectrum antimicrobials started: Ceftriaxone + Remdesivir - In regards to fluids: - 30 mL/kg of IV fluids was not administered given SBP > 90, MAP > 65, lactic acid < 4 # Steroid-Induced Hyperglycemia in Type II Diabetes Mellitus - Unable to obtain Hgb A1c as she is s/p pRBC transfusion - Continue correction scale insulin # KDIGO Stage I Acute Kidney Injury - resolved - Creatinine = 1.79 -> 1.62 -> 1.35 -> 1.32 -> 1.26 -> 1.10 -> 0.96 (creatinine was 0.91 in March 2018) - Urinalysis = 2+ blood, positive nitrite, occasional WBC clumps, 510 WBCs, >50 bacteria, 3+ protein - Monitor creatinine and urine output - If worsening, obtain renal ultrasound - Renally dose medications # Chronic Anemia - No current evidence of bleeding - S/P 2 units pRBCs this hospitalization, with stabilization of Hgb - Daily CBC # Hyperthyroidism with History of Hypothyroidism - Possibly secondary to over-supplementation - TSH 0.033, Free T4 1.49 - Hold home levothyroxine # Hypertension - Hold home anti-hypertensives for now given concern for sepsis Hal Mittal M.D.
[2022-04-08] MEDS: IPRATROPIUM BROM 0.5MG/2.5ML NEB SCH ×4 (01:47→19:25)
[2022-04-08] MEDS ORDERED: TRAMADOL HCL 50 MG TAB PO ONE (02:18)
[2022-04-08 04:38] LABS: Albumin 2.1 g/dL (3.4-5.0); Bilirubin Total 0.3 mg/dL (0.2-1.0); Potassium 4.8 mmol/L (3.5-5.1); Protein, Total 6.1 g/dL (6.4-8.2)
--- NOTE | 2022-04-08 06:44 | P.PN ---
Her care has been transitioned to Dr. Iglesias as the primary attending physician.
[2022-04-08] MEDS: INSULIN -REGULAR HUMAN 50 UNIT/0.5 ML ML SQ SCH ×4 (07:30→20:43)
[2022-04-08] MEDS: ARFORMOTEROL TARTRATE 15 MCG/2 ML VIAL.NEB NEB SCH ×2 (08:54→19:25)
[2022-04-08] MEDS: THIAMINE 200 MG/2 ML INJ IVP SCH ×2 (08:55→20:26)
[2022-04-08] MEDS: ACETAMINOPHEN 325 MG TABLET PO PRN ×2 (08:55→20:26)
[2022-04-08] MEDS: dexAMETHasone 4 MG/ML VIAL IV SCH ×2 (08:55→20:26)
[2022-04-08] MEDS: ENOXAPARIN 40 MG/0.4 ML SQ SCH (08:55)
[2022-04-08] MEDS: LOSARTAN POTASSIUM 50 MG TABLET PO SCH (08:55)
[2022-04-08] MEDS: NICOTINE 21 MG/PAT TD SCH (08:56)
[2022-04-08] MEDS: CEFTRIAXONE 1,000 MG in NA CHLORIDE 0.9% 50 ML IVPB SCH (08:56)
[2022-04-08] MEDS: REMDESIVIR (EUA) 100 MG in NA CHLORIDE 0.9% 250 ML IV SCH (09:44)
--- NOTE | 2022-04-08 11:52 | P.PN ---
Subjective Date of Service: 04/08/22 Primary Care Provider: Angi Chief Complaint: Coronavirus pneumonia Patient is doing better today more alert responsive cooperative feeling better Review of Systems General: Weakness Respiratory: Shortness of Breath Physical Examination - Vital Signs Temperature: 97 F Blood Pressure: 157/72 Pulse: 64 Respirations: 18 Pulse Ox (%): 93 - Physical Exam General: Alert, Oriented x3 Respiratory: Clear to auscultation bilaterally Cardiovascular: No edema, Regular rate/rhythm, Normal S1 S2 - Studies Medications List Reviewed: Yes Assessment And Plan - Current Problems (Diagnosis) (1) COVID Current Visit: Yes Status: Acute Plan: Patient admitted with COVID-pneumonia is gradually improving continue to wean down on the oxygen patient started on remdesivir White count is stable change to p.o. levofloxacin continue with remdesivir and Paxlovid continue to wean down on the oxygen still requiring high concentration Labs reviewed
[2022-04-08] MEDS: BENZONATATE 100 MG CAP PO PRN (20:26)
[2022-04-09] MEDS: IPRATROPIUM BROM 0.5MG/2.5ML NEB SCH ×4 (01:10→19:05)
[2022-04-09 04:38] LABS: Albumin 2.1 g/dL (3.4-5.0); Bilirubin Total 0.2 mg/dL (0.2-1.0); Potassium 4.9 mmol/L (3.5-5.1)
[2022-04-09] MEDS: INSULIN -REGULAR HUMAN 50 UNIT/0.5 ML ML SQ SCH ×4 (07:30→20:36)
--- NOTE | 2022-04-09 07:42 | RAD REPORT ---
EXAM DESCRIPTION: RAD - Chest Single View - 04/09/2022 6:55 am CLINICAL HISTORY: COVID [place] COMPARISON: Chest Single View dated 04/06/2022; Chest Single View dated 04/03/2022; Chest Single View d ated 04/01/2022; Chest Pa And Lat (2 Views) dated 01/09/2017; Chest For Pe Angio dated 04/05/2022 FINDINGS: Lines: None. Lungs: Similar diffuse coarsening of the pulmonary interstitium. Pleural: No significant pleural effusions or pneumothorax. Cardiac: Cardiomegaly. Mediastinum: Within normal limits. Bones: No acute fractures. Other: None IMPRESSION: No significant change in aeration of the lungs compared 04/06/2022 with either multifoca l pneumonia and/or edema.
--- NOTE | 2022-04-09 07:58 | P.PN ---
Subjective Date of Service: 04/09/22 Primary Care Provider: Angi Chief Complaint: Coronavirus pneumonia Patient is improving complaining of a sore throat shortness of breath has improved Review of Systems General: Weakness, Other (Sore throat) Respiratory: Shortness of Breath Physical Examination - Vital Signs Temperature: 97.6 F Blood Pressure: 137/64 Pulse: 68 Respirations: 18 Pulse Ox (%): 93 - Physical Exam General: Oriented x3 Neck: Supple Respiratory: Clear to auscultation bilaterally Cardiovascular: No edema, Regular rate/rhythm Gastrointestinal: Normal bowel sounds, Soft and benign Musculoskeletal: No clubbing, No swelling - Studies Medications List Reviewed: Yes Assessment And Plan - Current Problems (Diagnosis) (1) COVID Current Visit: Yes Status: Acute Plan: Patient is coronavirus pneumonia improving oxygen requirements are declining still very weak continue with physical therapy oxygen requirements down to 65% will change to p.o. 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 thiamine
[2022-04-09] MEDS: ENOXAPARIN 40 MG/0.4 ML SQ SCH (08:01)
[2022-04-09] MEDS: NICOTINE 21 MG/PAT TD SCH (08:01)
[2022-04-09] MEDS: levoFLOXacin 500 MG TAB PO SCH (08:02)
[2022-04-09] MEDS ORDERED: PHENOL 1.4% ORAL SPRAY 180ML MM PRN (08:19)
[2022-04-09] MEDS: ARFORMOTEROL TARTRATE 15 MCG/2 ML VIAL.NEB NEB SCH ×2 (09:55→19:05)
[2022-04-09] MEDS: THIAMINE HCL 100 MG TABLET PO SCH ×2 (11:19→20:36)
[2022-04-09] MEDS: REMDESIVIR (EUA) 100 MG in NA CHLORIDE 0.9% 250 ML IV SCH (11:19)
[2022-04-09] MEDS: LOSARTAN POTASSIUM 50 MG TABLET PO SCH (11:19)
[2022-04-09] MEDS: dexAMETHasone 4 MG TAB PO SCH (11:19)
[2022-04-09] MEDS: ACETAMINOPHEN 325 MG TABLET PO PRN ×2 (15:48→20:36)
[2022-04-09] MEDS: BENZONATATE 100 MG CAP PO PRN (20:38)
[2022-04-10] MEDS: IPRATROPIUM BROM 0.5MG/2.5ML NEB SCH ×4 (01:45→19:20)
[2022-04-10 05:40] LABS: Albumin 2.2 g/dL (3.4-5.0); Bilirubin Total 0.3 mg/dL (0.2-1.0); Potassium 4.9 mmol/L (3.5-5.1); Protein, Total 5.8 g/dL (6.4-8.2)
[2022-04-10] MEDS: INSULIN -REGULAR HUMAN 50 UNIT/0.5 ML ML SQ SCH ×4 (07:30→20:05)
[2022-04-10] MEDS: levoFLOXacin 500 MG TAB PO SCH (08:39)
[2022-04-10] MEDS: LOSARTAN POTASSIUM 50 MG TABLET PO SCH (08:39)
[2022-04-10] MEDS: REMDESIVIR (EUA) 100 MG in NA CHLORIDE 0.9% 250 ML IV SCH (08:40)
[2022-04-10] MEDS: NICOTINE 21 MG/PAT TD SCH (08:40)
[2022-04-10] MEDS: THIAMINE HCL 100 MG TABLET PO SCH ×2 (08:40→20:06)
[2022-04-10] MEDS: ENOXAPARIN 40 MG/0.4 ML SQ SCH (08:40)
[2022-04-10] MEDS: dexAMETHasone 4 MG TAB PO SCH (08:40)
[2022-04-10] MEDS: ARFORMOTEROL TARTRATE 15 MCG/2 ML VIAL.NEB NEB SCH ×2 (10:00→19:20)
--- NOTE | 2022-04-10 10:32 | P.PN ---
Subjective Date of Service: 04/10/22 Primary Care Provider: Angi Chief Complaint: Coronavirus pneumonia Patient is improving no longer on high flow oxygen more alert responsive very weak Review of Systems General: Weakness Respiratory: Shortness of Breath Physical Examination - Vital Signs Temperature: 97.3 F Blood Pressure: 134/73 Pulse: 69 Respirations: 16 Pulse Ox (%): 90 - Physical Exam General: Alert, Oriented x3, Mild distress Respiratory: Clear to auscultation bilaterally Cardiovascular: No edema, Regular rate/rhythm, Normal S1 S2 Gastrointestinal: Normal bowel sounds, Soft and benign - Studies Medications List Reviewed: Yes Assessment And Plan - Current Problems (Diagnosis) (1) COVID Current Visit: Yes Status: Acute Plan: Patient admitted with COVID-pneumonia is improving we will DC levofloxacin White count is mildly elevated very weak valuate for SNF physical therapy more alert and responsive labs reviewed and p.o. dexamethasone
[2022-04-10] MEDS: BENZONATATE 100 MG CAP PO PRN (16:48)
[2022-04-10] MEDS: ACETAMINOPHEN 325 MG TABLET PO PRN (16:48)
[2022-04-11] MEDS: IPRATROPIUM BROM 0.5MG/2.5ML NEB SCH ×4 (01:35→20:00)
[2022-04-11 04:38] LABS: Albumin 2.3 g/dL (3.4-5.0); Bilirubin Total 0.2 mg/dL (0.2-1.0); Potassium 4.8 mmol/L (3.5-5.1); Protein, Total 5.9 g/dL (6.4-8.2)
--- NOTE | 2022-04-11 07:26 | P.PN ---
Subjective Date of Service: 04/11/22 Primary Care Provider: Angi Chief Complaint: Coronavirus pneumonia/COPD Patient is much better alert responsive very weak is done down to 4 L of nasal cannula oxygen Review of Systems General: Weakness Respiratory: Shortness of Breath Physical Examination - Vital Signs Temperature: 97.4 F Blood Pressure: 129/59 Pulse: 67 Respirations: 18 Pulse Ox (%): 93 - Physical Exam General: Alert, In no apparent distress, Oriented x3 Respiratory: Clear to auscultation bilaterally, Diminished Cardiovascular: Regular rate/rhythm, Normal S1 S2 - Studies Medications List Reviewed: Yes Assessment And Plan - Current Problems (Diagnosis) (1) COVID Current Visit: Yes Status: Acute Plan: Patient admitted with COVID-pneumonia is doing much better need rehab or SNF very weak reduce Decadron to 2 mg daily renal function slightly worse so start patient on IV fluid stable for discharge home or to a SNF unit will need bronchodilators at home patient is an active smoker Advair 1 puff twice a day In addition to low-dose Decadron 2 mg once a day for a week follow-up with me in 2 to 4 weeks
[2022-04-11] MEDS: INSULIN -REGULAR HUMAN 50 UNIT/0.5 ML ML SQ SCH ×4 (07:30→21:00)
[2022-04-11] MEDS: ARFORMOTEROL TARTRATE 15 MCG/2 ML VIAL.NEB NEB SCH ×2 (08:00→20:00)
[2022-04-11] MEDS: NACHLORIDE 0.45% 1,000 ML IV SCH ×2 (09:18→19:41)
[2022-04-11] MEDS: NICOTINE 21 MG/PAT TD SCH (09:21)
[2022-04-11] MEDS: dexAMETHasone 4 MG TAB PO SCH (09:21)
[2022-04-11] MEDS: ENOXAPARIN 40 MG/0.4 ML SQ SCH (09:21)
[2022-04-11] MEDS: LOSARTAN POTASSIUM 50 MG TABLET PO SCH (09:21)
[2022-04-11] MEDS: REMDESIVIR (EUA) 100 MG in NA CHLORIDE 0.9% 250 ML IV SCH (09:22)
[2022-04-11] MEDS: THIAMINE HCL 100 MG TABLET PO SCH ×2 (09:22→19:41)
[2022-04-11] MEDS: ACETAMINOPHEN 325 MG TABLET PO PRN ×2 (14:08→19:41)
[2022-04-11] MEDS: ALBUTEROL 2.5 MG/3 ML NEB SOL NEB PRN (14:23)
[2022-04-11] MEDS ORDERED: ALBUTEROL 2.5 MG/3 ML NEB SOL NEB PRN (15:00)
[2022-04-12] MEDS: TRAMADOL HCL 50 MG TAB PO PRN ×2 (00:03→10:51)
[2022-04-12] MEDS: IPRATROPIUM BROM 0.5MG/2.5ML NEB SCH ×3 (01:20→14:17)
[2022-04-12 07:18] LABS: Albumin 2.3 g/dL (3.4-5.0); Bilirubin Total 0.3 mg/dL (0.2-1.0); Potassium 4.3 mmol/L (3.5-5.1); Protein, Total 5.7 g/dL (6.4-8.2)
[2022-04-12] MEDS: INSULIN -REGULAR HUMAN 50 UNIT/0.5 ML ML SQ SCH ×3 (07:30→17:08)
[2022-04-12 07:50] LABS: Absolute Lymphocytes (CBC) 0.7 K/uL (0.7-4.9); Hematocrit 34.1 % (36.0-45.0); Lymphocytes % 4.5 % (15.3-44.8); MCV 73.7 fL (80-100); MPV 8.9 fL (7.6-11.3); RBC Red Blood Cell Count 4.62 M/uL (3.86-4.86)
[2022-04-12 08:40] LABS: Anisocytosis 1+; Blood Morphology Comment NOTED (NOT SEEN); Platelet Estimate ADEQ; White Blood Cell Scan OK (OK)
[2022-04-12] MEDS: ARFORMOTEROL TARTRATE 15 MCG/2 ML VIAL.NEB NEB SCH (08:48)
[2022-04-12] MEDS: NACHLORIDE 0.45% 1,000 ML IV SCH (09:37)
[2022-04-12] MEDS: dexAMETHasone 4 MG TAB PO SCH (09:38)
[2022-04-12] MEDS: THIAMINE HCL 100 MG TABLET PO SCH (09:38)
[2022-04-12] MEDS: LOSARTAN POTASSIUM 50 MG TABLET PO SCH (09:38)
[2022-04-12] MEDS: ENOXAPARIN 40 MG/0.4 ML SQ SCH (09:39)
[2022-04-12] MEDS: NICOTINE 21 MG/PAT TD SCH (09:39)
[2022-04-12 15:26] VITALS: TEMP 96.8
[2022-04-12 17:59] VITALS: BP 136/63; O2SAT 90
== END 2022-04-12 17:07 | DRG 871 ==
LOC: ER 12:23 → ERHOLD 15:51 → 4TH 18:02
PROVIDERS: ADMIT Hospitalist; ATTEND Hospitalist
PROC: 5A09557 Assistance with Respiratory Ventilation, Greater than 96 Consecutive Hours, Continuous Positive Airway Pressure (ICD-10-PCS; 2022-04-01)
PROC: XW0DXF5 Introduction of Other New Technology Therapeutic Substance into Mouth and Pharynx, External Approach, New Technology Group 5 (ICD-10-PCS; 2022-04-02)
PROC: 30233N1 Transfusion of Nonautologous Red Blood Cells into Peripheral Vein, Percutaneous Approach (ICD-10-PCS; 2022-04-02)
PROC: XW033E5 Introduction of Remdesivir Anti-infective into Peripheral Vein, Percutaneous Approach, New Technology Group 5 (ICD-10-PCS; principal; 2022-04-07)
DX: A41.89 Other specified sepsis (principal); J12.82 Pneumonia due to coronavirus disease 2019; J96.22 Acute and chronic respiratory failure with hypercapnia; U07.1 COVID-19; N17.9 Acute kidney failure, unspecified; E87.1 Hypo-osmolality and hyponatremia; F05 Delirium due to known physiological condition; R65.20 Severe sepsis without septic shock; J43.9 Emphysema, unspecified; I10 Essential (primary) hypertension; E11.65 Type 2 diabetes mellitus with hyperglycemia; D50.9 Iron deficiency anemia, unspecified; E05.90 Thyrotoxicosis, unspecified without thyrotoxic crisis or storm; I07.1 Rheumatic tricuspid insufficiency; E03.9 Hypothyroidism, unspecified; F17.210 Nicotine dependence, cigarettes, uncomplicated; T38.0X5A Adverse effect of glucocorticoids and synthetic analogues, initial encounter; R82.71 Bacteriuria; Z66 Do not resuscitate; Z88.5 Allergy status to narcotic agent; Z88.0 Allergy status to penicillin; Z88.1 Allergy status to other antibiotic agents; Z79.02 Long term (current) use of antithrombotics/antiplatelets; Z79.82 Long term (current) use of aspirin; Z79.84 Long term (current) use of oral hypoglycemic drugs; Z79.899 Other long term (current) drug therapy; Z79.890 Hormone replacement therapy; Z90.710 Acquired absence of both cervix and uterus; Z28.310 Unvaccinated for COVID-19
CPT/HCPCS: 0240U; 36415; 71045; 71275; 80048; 80053; 80076; 81003; 81015; 82805; 82947; 83605; 83735; 83880; 84100; 84145; 84439; 84443; 84484; 85025; 85610; 85730; 86850; 86900; 86901; 87040; 93005; 93306; 94002; 94003; 94010; 94660; 94760; 97110; 97116; 97161; 97530; 99285; C9113; J0248; J1100; J1650; J1815; J1940; J2185; J2405; J2920; J2930; J3411; J3535; J7030; J7040; J7050; J7605; J7613; J7614; J7644; J8499; J8540; P9016; Q9967

== ENCOUNTER 2022-06-13 07:22 | Day surgery (SDC) | payer OTHER ==
[2022-06-13 08:10] LABS: Hematocrit 23.3 % (36.0-45.0)
[2022-06-13 08:29] VITALS: BMI 34.9
[2022-06-13] MEDS ORDERED: NA CHLORIDE 0.9% 250 ML ONE ×2 (08:55→12:43)
[2022-06-13] MEDS ORDERED: FUROSEMIDE 40 MG/4 ML VIAL ONE (12:39)
[2022-06-13 17:19] VITALS: BP 169/66; TEMP 98.5; O2SAT 98
[2022-06-13 17:23] LABS: Hematocrit 32.8 % (36.0-45.0)
== END 2022-06-13 17:17 | disposition home or self-care (01) ==
LOC: DS 07:22
PROVIDERS: ATTEND Internal Medicine Gastroenterology
DX: D50.9 Iron deficiency anemia, unspecified (principal)
CPT/HCPCS: 36415; 86900; 86850; 86901; 86920; 85018 ×2; 85014 ×2; 36430; J1940; P9016 ×2; J7050 ×2

== ENCOUNTER 2022-07-26 06:57 | Day surgery (SDC) | payer OTHER ==
[2022-07-26] MEDS ORDERED: NA CHLORIDE 0.9% 1,000 ML ONE (07:18)
[2022-07-26] MEDS ORDERED: LIDOCAINE 1% MPF 5 ML VIAL ONE (08:00)
[2022-07-26] MEDS ORDERED: propofoL 200 MG/20 ML VIAL IV ONE (08:00)
[2022-07-26 09:12] VITALS: TEMP 98
[2022-07-26 09:16] VITALS: BP 125/51; O2SAT 96
== END 2022-07-26 09:10 | disposition home or self-care (01) ==
LOC: OR 06:57
PROVIDERS: ATTEND Internal Medicine Gastroenterology
PROC: 0DB88ZX Excision of Small Intestine, Via Natural or Artificial Opening Endoscopic, Diagnostic (ICD-10-PCS; 2022-07-26)
PROC: 0DB78ZX Excision of Stomach, Pylorus, Via Natural or Artificial Opening Endoscopic, Diagnostic (ICD-10-PCS; 2022-07-26)
PROC: 0DB68ZX Excision of Stomach, Via Natural or Artificial Opening Endoscopic, Diagnostic (ICD-10-PCS; principal; 2022-07-26 08:30)
DX: D64.9 Anemia, unspecified (principal); K20.90 Esophagitis, unspecified without bleeding; K29.50 Unspecified chronic gastritis without bleeding
CPT/HCPCS: 88312; 82947; 88305; 43239; J2704; J2001; J7030

== ENCOUNTER 2022-12-07 12:34 | Emergency (ER) | payer OTHER ==
--- OUTSIDE RECORDS SUMMARY | 2022-12-07 12:37 | XMS REPORT | Continuity of Care Document ---
:1945 Author Organization [facility] t Address [address] [place] [address] Care Team Providers Name Role Phone Fallon Diaz Attending Clinician Unavailable Problems This patient has no known problems. Allergies, Adverse Reactions, Alerts This patient has no known allergies or adverse reactions. Medications This patient has no known medications. Procedures This patient has no known procedures. Encounters Start End Encounter Admission Attending Care Care Encounter Source Date/Time Date/Time Type Type Clinicians Facility Department ID 2022-06-10 2022-06-10 Outpatient LESLIE Diaz [facility] [id number] [facility] 10:39:00 10:39:00 Fallon Nicole [facility] Results This patient has no known results.
[2022-12-07 13:40] LABS: Absolute Lymphocytes (CBC) 0.9 K/uL (0.7-4.9); Hematocrit 22.5 % (36.0-45.0); Lymphocytes % 13.4 % (15.3-44.8); MCV 80.4 fL (80-100); MPV 8.5 fL (7.6-11.3); Platelets 245 thou/uL (152-406)
[2022-12-07 13:55] LABS: Albumin 3.2 g/dL (3.4-5.0); Bilirubin Total 0.2 mg/dL (0.2-1.0); Potassium 4.6 mEq/L (3.5-5.1); Protein, Total 7.1 g/dL (6.4-8.2)
[2022-12-07] MEDS ORDERED: NA CHLORIDE 0.9% 1,000 ML ONE (14:56)
--- NOTE | 2022-12-07 15:29 | RAD REPORT ---
EXAM DESCRIPTION: CT - Abdomen Angio - 12/07/2022 2:08 pm CLINICAL HISTORY: poss GI bleed; abd pain COMPARISON: ABDOMEN W CONTRAST dated 04/21/2010 TECHNIQUE: Dynamically enhanced 3 mm thick images of the abdomen were obtained during administration of approximately 100mL Isovue 370 IV contrast. Sagittal and coronal reconstructions as well as maxim al intensity projection reconstruction were generated and reviewed per an aortic angiography protocol . All CT scans are performed using dose optimization technique as appropriate and may include automated exposure control or mA/KV adjustment according to patient size. FINDINGS: Aorta is normal in diameter with no dissection or other acute aortic findings. Mild athero sclerotic calcifications. Reconstruction images show no significant findings. Pulmonary arteries are normal as well. Lung bases are unremarkable. No abnormal mediastinal or hilar mass or lymphadenopathy seen. No chest wall mass or abnormal axillar y lymphadenopathy. Celiac, SMA and renal arteries show no suspicious findings. Small foci of hyperenhancement, approachi ng contrast density along the greater curvature of the body of the stomach, see axial images 42 and 4 4. Gallbladder is partially contracted, with a small gallstone near the fundus. Somewhat nodular contour of the liver. 1.6 cm left adrenal nodule, not well characterized, but appears stable. Solid abdomina l viscera and bowel show no other significant findings. No mass or abnormal lymphadenopathy. IMPRESSION: Small foci of hyperenhancement along the greater curvature of the gastric body as above, may represent gastric content versus contrast extravasation related to small ulcers or venous malfor mation. Cholelithiasis. Somewhat nodular contour of the liver, underlying fibrosis/ cirrhosis should be considered. Please co rrelate with liver function tests.
[2022-12-07] MEDS ORDERED: NA CHLORIDE 0.9% 250 ML ONE ×2 (16:30→20:30)
--- NOTE | 2022-12-07 18:58 | EDPHYS ---
Physician Documentation [facility] Name: Lynn Menezes Age: 77 yrs Sex: Female : 1945 Arrival Date: 12/07/2022 Time: 12:34 Bed 8 Private MD: ED Physician Hiren Miranda HPI: 12/07 13:10 This 77 yrs old Female presents to ER via Wheelchair with complaints of Abnormal Lab sb4 Results. 13:10 patient presents with blood work drawn 2 days ago with hemoglobin of 7.1. she complains sb4 of fatigue. she has been seeing GI, had an endoscopy, and is in the process of being referred to another GI specialist. she denies any dark stool, hematemesis, bright red blood per rectum, abdominal pain, nausea, vomiting. Historical: - Allergies: 12:47 Codeine; mb9 12:47 PENICILLINS; mb9 12:47 Sulfa (Sulfonamide Antibiotics); mb9 12:47 TETRACYCLINES; mb9 - PMHx: 12:47 Anemia; Emphysema; Hypertensive disorder; Hypothyroidism; COPD; mb9 - PSHx: 12:47 Total abdominal hysterectomy; mb9 - Immunization history:: Adult Immunizations up to date. - Social history:: Smoking status: Patient/guardian denies using tobacco. ROS: 13:10 Eyes: Negative for injury, pain, redness, and discharge, ENT: Negative for injury, sb4 pain, and discharge, Cardiovascular: Negative for chest pain, palpitations, and edema, Respiratory: Negative for shortness of breath, cough, wheezing, and pleuritic chest pain, Abdomen/GI: Negative for abdominal pain, nausea, vomiting, diarrhea, and constipation, MS/Extremity: Negative for injury and deformity, Skin: Negative for injury, rash, and discoloration, Neuro: Negative for headache, weakness, numbness, tingling, and seizure, 13:10 Constitutional: Positive for fatigue, Exam: 13:10 Head/Face: Normocephalic, atraumatic. Eyes: Extra-ocular motions intact. Periorbital sb4 areas with no swelling, redness, or edema. ENT: Mucous membranes moist. Cardiovascular: Regular rate and rhythm with a normal S1 and S2. Respiratory: Lungs have equal breath sounds bilaterally, clear to auscultation and percussion. No rales, rhonchi or wheezes noted. No increased work of breathing, no retractions or nasal flaring. Abdomen/GI: Soft, non-tender, no distension. Skin: Warm, dry with normal turgor. Normal color with no rashes, no lesions, and no evidence of cellulitis. MS/ Extremity: Pulses equal, no cyanosis. Neurovascular intact. Full, normal range of motion. Neuro: Awake and alert, GCS 15, oriented to person, place, time, and situation. Motor strength 5/5 in all extremities. Sensory grossly intact. 13:10 Constitutional: The patient appears in no acute distress, alert, awake, pale, Vital Signs: 12:45 BP 127 / 48; Pulse 81; Resp 18; Temp 97.5; Pulse Ox 100% on 2 lpm NC; Weight 93.44 kg; mb9 Height 5 ft. 3 in. ; 19:00 BP 152 / 62; Pulse 69; Resp 20 S; Pulse Ox 100% on 2 lpm NC; jw7 20:00 BP 161 / 59; Pulse 75; Resp 23 S; Pulse Ox 100% on 2 lpm NC; jw7 21:00 BP 146 / 56; Pulse 76; Resp 20 S; Pulse Ox 100% on 2 lpm NC; jw7 22:00 BP 163 / 57; Pulse 77; Resp 24 S; Pulse Ox 100% on 2 lpm NC; jw7 23:33 BP 165 / 67; Pulse 71; Resp 24 S; Pulse Ox 100% on 2 lpm NC; as6 12:45 Body Mass Index 36.49 (93.44 kg, 160.02 cm) 9 MDM: 12:39 Patient medically screened. sb4 13:10 Differential diagnosis: GI bleed, anemia. sb4 18:14 Data reviewed: vital signs, nurses notes, lab test result(s), radiologic studies, and sb4 as a result, I will discharge patient. Consideration of Admission/Observation Escalation of care including admission/observation considered. Historians other than the Patient: Daughter/Son: son. Counseling: I had a detailed discussion with the patient and/or guardian regarding the historical points, exam findings, and any diagnostic results supporting the discharge/admit diagnosis, lab results, radiology results, to return to the emergency department if symptoms worsen or persist or if there are any questions or concerns that arise at home. 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 hemoglobin went from 7.1 to 6.9 in 2 days, likely has a very slow GI bleed. denies any dark stool or hematemesis. patient is safe for discharge home. strict return precautions given. she verbalized her understanding. 12/07 12:58 Order name: Type And Screen sb4 12/07 13:21 Order name: Comprehensive Metabolic Panel; Complete Time: 14:01 EDMS 12/07 13:21 Order name: Lipase; Complete Time: 14:01 EDMS 12/07 13:21 Order name: CBC with Automated Diff; Complete Time: 13:44 EDMS 12/07 13:21 Order name: Type and Screen EDMS 12/07 13:53 Order name: Packed RBC Leukored EDAK 12/07 16:25 Order name: Bb Add On bd 12/07 16:33 Order name: Packed RBCs (Additional Unit) EDMS 12/07 13:52 Order name: Abdomen Angio; Complete Time: 15:32 EDMS 12/07 12:58 Order name: IV Saline Lock; Complete Time: 13:24 sb4 12/07 12:58 Order name: Labs collected and sent; Complete Time: 13:24 sb4 12/07 13:49 Order name: Transfuse; Complete Time: 19:09 sb4 Administered Medications: 14:57 Drug: NS 0.9% IV 1000 ml IV at 1 bolus Per protocol; 1000 mL bolus Route: IV; Rate: 1 os bolus; Site: left forearm; 19:39 Follow up: Response: No adverse reaction; IV Status: Completed infusion; IV Intake: jw7 1000ml Disposition: 17:39 Co-signature as Attending Physician, Hiren Miranda MD I reviewed the patient's care rt provided by the Advanced Practice Provider and agree with the diagnosis and treatment plan. Disposition Summary: 12/07/22 18:57 Discharge Ordered Notes: Location: Home sb4 Problem: an ongoing problem sb4 Symptoms: have improved sb4 Condition: Stable sb4 Diagnosis - Anemia, unspecified sb4 Followup: sb4 - With: Emergency Department - When: As needed - Reason: Trouble breathing, Worsening of condition Discharge Instructions: - Discharge Summary Sheet sb4 - Anemia sb4 - Blood Transfusion, Adult sb4 Forms: - Medication Reconciliation Form sb4 - Thank You Letter sb4 - Antibiotic Education sb4 - Prescription Opioid Use sb4 - Patient Portal Instructions sb4 - Leadership Thank You Letter sb4 Signatures: Dispatcher [employer] EDMS Andra Valderrama, ELIJAH-C [employer]-Hannah Balbuena PA-C PA-C sb4 Fide Sanabria, RN RN mb9 Hiren Miranda MD MD rt Eddie Anders RN RN os Mar Meeks RN jw7 Corrections: (The following items were deleted from the chart) 13:53 13:42 Abdomen Angio+CT.RAD.BRZ ordered. EDMS EDMS 13:54 13:42 ABO/RH TYPING+BB.LAB.BRZ ordered. EDMS EDMS
--- NOTE | 2022-12-07 18:58 | ER ---
Nurse's Notes [facility] Name: Lynn Menezes Age: 77 yrs Sex: Female : 1945 Arrival Date: 12/07/2022 Time: 12:34 Bed 8 Private MD: Diagnosis: Anemia, unspecified Presentation: 12/07 12:45 Chief complaint: Patient states: "I was sent here for a blood transfusion by Dr. Whitley. mb9 My Hgb was 7.1 on Monday. 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 I feel tired all the time". Coronavirus screen: Vaccine status: Patient reports being unvaccinated. Ebola Screen: No symptoms or risks identified at this time. Initial Sepsis Screen: Does the patient meet any 2 criteria? No. Patient's initial sepsis screen is negative. Does the patient have a suspected source of infection? No. Patient's initial sepsis screen is negative. Risk Assessment: Do you want to hurt yourself or someone else? Patient reports no desire to harm self or others. Onset of symptoms was December 07, 2022. 12:45 Method Of Arrival: Wheelchair mb9 12:45 Acuity: EUNICE 3 mb9 Triage Assessment: 12:48 General: Appears in no apparent distress. Behavior is calm, cooperative. Pain: Denies mb9 pain. EENT: No signs and/or symptoms were reported regarding the EENT system. Neuro: Perdue Agitation-Sedation Scale (RASS): 0 - Alert and Calm Level of Consciousness is awake, alert, obeys commands, Oriented to person, place, time, situation, Appropriate for age Reports fatigue. Cardiovascular: Patient's skin is warm and dry. Respiratory: Airway is patent Respiratory effort is even, unlabored, Respiratory pattern is regular, symmetrical, Breath sounds are clear bilaterally. GI: No signs and/or symptoms were reported involving the gastrointestinal system. : No signs and/or symptoms were reported regarding the genitourinary system. Derm: Skin is intact, Skin is dry, Skin is pale, Skin temperature is warm. Musculoskeletal: Range of motion: intact in all extremities. Historical: - Allergies: 12:47 Codeine; mb9 12:47 PENICILLINS; mb9 12:47 Sulfa (Sulfonamide Antibiotics); mb9 12:47 TETRACYCLINES; mb9 - PMHx: 12:47 Anemia; Emphysema; Hypertensive disorder; Hypothyroidism; COPD; mb9 - PSHx: 12:47 Total abdominal hysterectomy; mb9 - Immunization history:: Adult Immunizations up to date. - Social history:: Smoking status: Patient/guardian denies using tobacco. Screenin:00 [facility] ED Fall Risk Assessment (Adult) History of falling in the last 3 months, jw7 including since admission No falls in past 3 months (0 pts) Score/Fall Risk Level 0 - 2 = Low Risk Oriented to surroundings, Maintained a safe environment. Abuse screen: Denies threats or abuse. Denies injuries from another. Nutritional screening: No deficits noted. Tuberculosis screening: No symptoms or risk factors identified. Assessment: 19:20 General: Appears in no apparent distress. comfortable, Behavior is calm, cooperative. jw7 Pain: Denies pain. Neuro: Perdue Agitation-Sedation Scale (RASS): 0 - Alert and Calm Level of Consciousness is awake, alert, obeys commands, Oriented to person, place, time, situation. Cardiovascular: No deficits noted. Respiratory: No deficits noted. GI: No deficits noted. No signs and/or symptoms were reported involving the gastrointestinal system. : No deficits noted. No signs and/or symptoms were reported regarding the genitourinary system. EENT: No deficits noted. No signs and/or symptoms were reported regarding the EENT system. Derm: No deficits noted. No signs and/or symptoms reported regarding the dermatologic system. Musculoskeletal: No deficits noted. No signs and/or symptoms reported regarding the musculoskeletal system. 19:25 General: Discharge pending completion of second unit of blood. . jw7 20:20 Reassessment: Patient appears in no apparent distress at this time. No changes from jw7 previously documented assessment. Patient and/or family updated on plan of care and expected duration. Pain level reassessed. Patient is alert, oriented x 3, equal unlabored respirations, skin warm/dry/pink. 20:45 General: Appears in no apparent distress. comfortable, Behavior is calm, cooperative. jw7 Pain: Denies pain. Neuro: Perdue Agitation-Sedation Scale (RASS): 0 - Alert and Calm Level of Consciousness is awake, alert, obeys commands, Oriented to person, place, time, situation. Cardiovascular: Heart tones S1 S2 present Capillary refill < 3 seconds Clubbing of nail beds is absent JVD is absent Patient's skin is warm and dry. Rhythm is regular. Respiratory: Airway is patent Trachea midline Respiratory effort is even, unlabored, Respiratory pattern is regular, symmetrical, tachypnea. GI: Abdomen is round non-distended, Bowel sounds present X 4 quads. Abd is soft and non tender X 4 quads. : No deficits noted. No signs and/or symptoms were reported regarding the genitourinary system. EENT: No deficits noted. No signs and/or symptoms were reported regarding the EENT system. Derm: Skin is intact, is healthy with good turgor, Skin is dry, Skin is normal, Skin temperature is warm. Musculoskeletal: Circulation, motion, and sensation intact. Range of motion: intact in all extremities. 20:50 General: second unit of blood started, see Transfusion Record. jw7 21:20 Reassessment: Patient appears in no apparent distress at this time. No changes from jw7 previously documented assessment. Patient and/or family updated on plan of care and expected duration. Pain level reassessed. Patient is alert, oriented x 3, equal unlabored respirations, skin warm/dry/pink. 22:16 Reassessment: Patient appears in no apparent distress at this time. No changes from jw7 previously documented assessment. Patient and/or family updated on plan of care and expected duration. Pain level reassessed. Patient is alert, oriented x 3, equal unlabored respirations, skin warm/dry/pink. Vital Signs: 12:45 BP 127 / 48; Pulse 81; Resp 18; Temp 97.5; Pulse Ox 100% on 2 lpm NC; Weight 93.44 kg; mb9 Height 5 ft. 3 in. ; 19:00 BP 152 / 62; Pulse 69; Resp 20 S; Pulse Ox 100% on 2 lpm NC; jw7 20:00 BP 161 / 59; Pulse 75; Resp 23 S; Pulse Ox 100% on 2 lpm NC; jw7 21:00 BP 146 / 56; Pulse 76; Resp 20 S; Pulse Ox 100% on 2 lpm NC; jw7 22:00 BP 163 / 57; Pulse 77; Resp 24 S; Pulse Ox 100% on 2 lpm NC; jw7 23:33 BP 165 / 67; Pulse 71; Resp 24 S; Pulse Ox 100% on 2 lpm NC; as6 12:45 Body Mass Index 36.49 (93.44 kg, 160.02 cm) mb9 ED Course: 12:38 Patient arrived in ED. mg5 12:39 Hannah Williamson PA-C is PHCP. sb4 12:39 Hiren Miranda MD is Attending Physician. sb4 12:47 Triage completed. mb9 12:47 Arm band placed on. mb9 13:24 Lipase Sent. bc6 13:24 CBC with Automated Diff Sent. bc6 13:24 Type and Screen Sent. bc6 13:24 Comprehensive Metabolic Panel Sent. bc6 13:24 Inserted saline lock: 20 gauge in left forearm, using aseptic technique. Blood bc6 collected. 13:32 Eddie Anders, RN is Primary Nurse. os 14:10 Abdomen Angio In Process Unspecified. EDMS 19:00 Patient has correct armband on for positive identification. Bed in low position. Call jw7 light in reach. Side rails up X2. 19:00 Provided Education on: Blood Transfusion. jw7 23:32 No provider procedures requiring assistance completed. IV discontinued, intact, as6 bleeding controlled, No redness/swelling at site. Pressure dressing applied. Administered Medications: 14:57 Drug: NS 0.9% IV 1000 ml IV at 1 bolus Per protocol; 1000 mL bolus Route: IV; Rate: 1 os bolus; Site: left forearm; 19:39 Follow up: Response: No adverse reaction; IV Status: Completed infusion; IV Intake: jw7 1000ml Medication: 22:23 VIS not applicable for this client. jw7 Intake: 19:39 IV: 1000ml; Total: 1000ml. jw7 Outcome: 18:57 Discharge ordered by . sb4 23:33 Discharged to home via wheelchair, with family, as6 23:33 Condition: stable 23:33 Discharge instructions given to patient, Instructed on discharge instructions, follow as6 up and referral plans. Demonstrated understanding of instructions, follow-up care, 23:34 Patient left the ED. as6 Signatures: Dispatcher [facility] Osvaldo Pierre RN RN as6 Mar Meeks RN RN jw7 Hannah Williamson PA-C PA-C sb4 Fide Sanabria RN RN mb9 Mirella Reza bc6 Eddie Anders, RN Marisa Awad mg5 Corrections: (The following items were deleted from the chart) 22: 19:00 BP 152 / 62; Pulse 69bpm; Resp 20bpm; Spontaneous; Pulse Ox 100% RA; jw7 jw7
[2022-12-07 23:55] VITALS: TEMP 97.5; O2SAT 100
[2022-12-08 00:13] VITALS: BP 165/67
== END 2022-12-07 23:34 | disposition home or self-care (01) ==
LOC: ER 12:34
PROC: 30233N1 Transfusion of Nonautologous Red Blood Cells into Peripheral Vein, Percutaneous Approach (ICD-10-PCS; principal; 2022-12-07)
DX: D64.9 Anemia, unspecified (principal); Z88.0 Allergy status to penicillin; Z88.1 Allergy status to other antibiotic agents; Z88.2 Allergy status to sulfonamides; Z88.5 Allergy status to narcotic agent
CPT/HCPCS: 96361; 85025; 36415; 86900; 86850; 86901; 86920 ×2; 83690; 80053; 74175; 96360; 99284; 36430; Q9967; P9016 ×2; J7050 ×2; J7030